=== PATIENT | female | born 1950 | race Caucasian/White ===

== ENCOUNTER 2017-10-31 15:11 | Inpatient (IN) | payer MEDICARE ==
[~2017-10-31] VITALS: Ht 160 cm; Wt 55.9 kg
[2017-10-31] MEDS ORDERED: morphine 4 MG/ML inj SYRINge IV ONE ×2 (15:35→17:50)
[2017-10-31] MEDS ORDERED: ondansetron/PF 4mg/2ml inj IV ONE (15:40)
[2017-10-31] MEDS ORDERED: normal saline 1000ML IV soln IV ONE ×2 (15:45→17:45)
[2017-10-31 15:59] LABS: BASOPHILS % (AUTO) 0.1 % (0-1); EOSINOPHILS % (AUTO) 0 % (0-6); HEMATOCRIT 39.9 % (35.0-45.0); HEMOGLOBIN 13.8 g/dl (12.0-16.0); LYMPHOCYTES # (AUTO) 0.6 X10'3 (1.1-4.8); LYMPHOCYTES % (AUTO) 2.7 % (21-51); MEAN CORPUSCULAR HEMOGLOBIN 31.8 PG (27.0-31.0); MEAN CORPUSCULAR HGB CONC 34.6 % (33.0-36.5); MEAN CORPUSCULAR VOLUME 91.8 FL (78-98); MEAN PLATELET VOLUME 8.1 FL (7.4-10.4); MONOCYTES # (AUTO) 0.2 X10'3 (0-0.9); NEUTROPHILS # (AUTO) 21.5 X10'3 (1.8-7.7); NEUTROPHILS % (AUTO) 96.2 % (42-75); PLATELET COUNT 296 X10'3 (140-440); RED BLOOD COUNT 4.34 X10'6 (4.20-5.60); RED CELL DISTRIBUTION WIDTH 13.5 % (11.5-14.5); WHITE BLOOD COUNT 22.3 X10'3 (4.5-11.0)
[2017-10-31] MEDS ORDERED: piperacillin/tazo 3.375gm/50ml 50 ML IV ONE (16:15)
[2017-10-31 16:24] LABS: ALANINE AMINOTRANSFERASE 28 U/L (12-78); ALBUMIN 3.4 G/DL (3.4-5.0); ALBUMIN/GLOBULIN RATIO 0.8 (1.1-1.5); ALKALINE PHOSPHATASE 90 IU/L (46-116); ANION GAP 14 (8-16); ASPARTATE AMINO TRANSFERASE 19 U/L (10-37); BILIRUBIN,TOTAL 1.4 MG/DL (0.1-1.0); BLOOD UREA NITROGEN 22 MG/DL (7-18); CALCIUM 9.7 MG/DL (8.5-10.1); CHLORIDE 99 MMOL/L (99-107); GLUCOSE 123 MG/DL (70-104); POTASSIUM 3.4 MMOL/L (3.5-5.1); SODIUM 139 MMOL/L (135-145); TOTAL CARBON DIOXIDE 25.8 MMOL/L (24-32); TOTAL PROTEIN 7.7 G/DL (6.4-8.2); eGFR 55 ML/MIN
[2017-10-31] MEDS ORDERED: vancomycin/NS 1 GM ADD-VANTAGE 250 ML IV ONE (17:45)
[2017-10-31] MEDS ORDERED: potassium Cl 40MEQ/NS 500ml 500 ML IV PRN ×2 (18:30)
[2017-10-31] MEDS ORDERED: ondansetron/PF 4mg/2ml inj IV PRN ×3 (18:30→21:35)
[2017-10-31] MEDS ORDERED: potassium Cl 20 mEq SR tablet PO PRN ×2 (18:30)
[2017-10-31] MEDS ORDERED: normal saline 1000ml 1,000 ML IV SCH (18:30)
[2017-10-31] MEDS ORDERED: morphine 4 MG/ML inj SYRINge IV PRN ×7 (18:30→21:35)
[2017-10-31] MEDS ORDERED: magnesium hydroxide 30ml (MOM) UD suspension PO PRN ×2 (18:30)
[2017-10-31] MEDS ORDERED: acetaminophen 325mg tablet PO PRN ×5 (18:30→20:00)
[2017-10-31] MEDS ORDERED: SIMV10TA2 PO (18:37)
[2017-10-31] MEDS ORDERED: MONT10TA24 PO (18:37)
[2017-10-31] MEDS ORDERED: BUDE10.2 INH (18:37)
[2017-10-31] MEDS ORDERED: ALBU8.5H8 INH (18:37)
[2017-10-31] MEDS ORDERED: ACET-812 PO (18:38)
[2017-10-31] MEDS ORDERED: CHL4T PO (18:39)
[2017-10-31] MEDS: normal saline 1000ml 1,000 ML IV SCH (19:57)
[2017-10-31] MEDS: docusate sod 100mg capsule PO SCH (20:00)
[2017-10-31] MEDS ORDERED: naloxone 0.4 mg/ml inj IV PRN (20:00)
[2017-10-31] MEDS: pantoprazole 40 MG vial IV SCH (20:00)
[2017-10-31] MEDS ORDERED: CADD PCA waste documentation MC PRN (20:00)
[2017-10-31] MEDS ORDERED: gentamicin 40 MG/1 ML inj ONE (20:01)
[2017-10-31] MEDS ORDERED: clindamycin phosphate 150mg/ml inj. ONE (20:01)
[2017-10-31] MEDS: piperacillin/tazo 3.375gm/50ml 50 ML IV SCH (20:05)
[2017-10-31] MEDS ORDERED: ipratropium/albuterol 3ml nebule NEB PRN (20:10)
[2017-10-31] MEDS ORDERED: fentaNYL /PF 50mcg/ml 5ml ampule ONE (20:21)
[2017-10-31] MEDS ORDERED: midazolam 2 mg/2 ml injection ONE (20:21)
[2017-10-31] MEDS ORDERED: albumin (Human) 5% 250 ML IV solution IV ONE (20:25)
[2017-10-31] MEDS ORDERED: desflurane 240ml liquid inh. IH ONE (20:25)
[2017-10-31] MEDS ORDERED: HYDROmorphone/NS 1 mg/ml CADD 50 ML IV SCH (21:00)
[2017-10-31] MEDS: ipratropium/albuterol 3ml nebule NEB SCH (21:00)
[2017-10-31] MEDS ORDERED: ringers solution, lacted 1,000 ML IV SCH (21:33)
[2017-10-31] MEDS ORDERED: meperidine/PF 50mg/ml syringe IV PRN ×3 (21:35)
[2017-10-31] MEDS ORDERED: proCHLORperazine 10 MG/2 ml inj IV PRN (21:35)
[2017-10-31] MEDS ORDERED: NORepinephrine 1 mg/ml inj IV ONE (21:45)
[2017-10-31] MEDS ORDERED: LIDOcaine 2% (20mg/ml) 5ml vial ONE (21:46)
[2017-10-31] MEDS ORDERED: propofol inj 20 ML IV ONE (21:46)
[2017-10-31] MEDS ORDERED: rocuronium 10mg/ml inj IV ONE ×2 (21:46)
[2017-10-31] MEDS ORDERED: ceFOXitin 1000 MG inj ONE ×2 (21:46)
[2017-10-31] MEDS ORDERED: NORepinephrine 8 MG in normal saline 250ml IV soln IV ONE (21:50)
[2017-10-31] MEDS ORDERED: midazolam 100mg in NS 100ml 100 ML IV PRN ×2 (22:17→22:25)
[2017-10-31] MEDS ORDERED: FENTANYL-0.9 % NACL/PF 100 ML IV PRN (22:17)
[2017-10-31] MEDS ORDERED: fentaNYL/PF 50MCG/1 ML 2ML syringe IV PRN (22:20)
[2017-10-31] MEDS ORDERED: midazolam 2 mg/2 ml injection IV ONE (22:20)
[2017-10-31] MEDS ORDERED: morphine 10mg/ml inj. ONE ×2 (23:07)
[2017-10-31] MEDS ORDERED: metoclopramide 5 mg/ml inj IV PRN (23:10)
[2017-10-31 23:14] VITALS: BP 142/85
[2017-10-31 23:29] VITALS: BP 154/81
[2017-10-31 23:44] VITALS: BP 144/76
[2017-10-31 23:53] LABS: BASOPHILS % (AUTO) 0.1 % (0-1); EOSINOPHILS % (AUTO) 0 % (0-6); HEMATOCRIT 35.5 % (35.0-45.0); LYMPHOCYTES # (AUTO) 1.4 X10'3 (1.1-4.8); LYMPHOCYTES % (AUTO) 9.7 % (21-51); MEAN CORPUSCULAR HEMOGLOBIN 31.3 PG (27.0-31.0); MEAN CORPUSCULAR HGB CONC 33.7 % (33.0-36.5); MEAN CORPUSCULAR VOLUME 92.7 FL (78-98); MEAN PLATELET VOLUME 8.1 FL (7.4-10.4); MONOCYTES # (AUTO) 0.4 X10'3 (0-0.9); MONOCYTES % (AUTO) 2.5 % (2-12); NEUTROPHILS # (AUTO) 12.8 X10'3 (1.8-7.7); NEUTROPHILS % (AUTO) 87.7 % (42-75); PLATELET COUNT 259 X10'3 (140-440); RED BLOOD COUNT 3.83 X10'6 (4.20-5.60); RED CELL DISTRIBUTION WIDTH 13.4 % (11.5-14.5); WHITE BLOOD COUNT 14.6 X10'3 (4.5-11.0)
[2017-10-31 23:56] LABS: OXYGEN SATURATION (MIXED VEN) 94.7 % (60-80); PO2 MIXED VENOUS (TEMP COR) 82.2 mmHg (35-46)
[2017-10-31 23:59] VITALS: BP 180/100
[2017-11-01] VITALS (24 sets, daily range): BP systolic 90–142; BP diastolic 48–77
[2017-11-01 00:18] LABS: ALANINE AMINOTRANSFERASE 22 U/L (12-78); ALBUMIN 2.3 G/DL (3.4-5.0); ALBUMIN/GLOBULIN RATIO 0.9 (1.1-1.5); ALKALINE PHOSPHATASE 63 IU/L (46-116); ANION GAP 11 (8-16); ASPARTATE AMINO TRANSFERASE 25 U/L (10-37); BILIRUBIN,TOTAL 0.9 MG/DL (0.1-1.0); BLOOD UREA NITROGEN 13 MG/DL (7-18); BUN/CREATININE RATIO 17.3 (6.6-38.0); CHLORIDE 111 MMOL/L (99-107); CREATININE 0.75 MG/DL (0.40-0.90); GLUCOSE 134 MG/DL (70-104); MAGNESIUM 1.5 MG/DL (1.5-2.4); PHOSPHORUS 2.5 MG/DL (2.3-4.5); SODIUM 142 MMOL/L (135-145); TOTAL CARBON DIOXIDE 20.1 MMOL/L (24-32); TOTAL PROTEIN 4.9 G/DL (6.4-8.2); eGFR 77 ML/MIN
[2017-11-01 00:19] LABS: POTASSIUM 3.7 MMOL/L (3.5-5.1)
[2017-11-01] MEDS: piperacillin/tazo 3.375gm/50ml 50 ML IV SCH ×4 (02:22→20:17)
[2017-11-01] MEDS: normal saline 1000ml 1,000 ML IV SCH ×2 (02:24→06:19)
[2017-11-01 02:32] LABS: BASOPHILS % (AUTO) 0.1 % (0-1); EOSINOPHILS % (AUTO) 0.3 % (0-6); HEMATOCRIT 34.2 % (35.0-45.0); HEMOGLOBIN 11.7 g/dl (12.0-16.0); LYMPHOCYTES # (AUTO) 0.9 X10'3 (1.1-4.8); LYMPHOCYTES % (AUTO) 6.2 % (21-51); MEAN CORPUSCULAR HEMOGLOBIN 31.8 PG (27.0-31.0); MEAN CORPUSCULAR HGB CONC 34.3 % (33.0-36.5); MEAN CORPUSCULAR VOLUME 92.6 FL (78-98); MEAN PLATELET VOLUME 8.1 FL (7.4-10.4); MONOCYTES # (AUTO) 0.2 X10'3 (0-0.9); MONOCYTES % (AUTO) 1.3 % (2-12); NEUTROPHILS % (AUTO) 92.1 % (42-75); PLATELET COUNT 268 X10'3 (140-440); RED BLOOD COUNT 3.69 X10'6 (4.20-5.60); RED CELL DISTRIBUTION WIDTH 13.6 % (11.5-14.5); WHITE BLOOD COUNT 14.1 X10'3 (4.5-11.0)
[2017-11-01 02:51] LABS: ALANINE AMINOTRANSFERASE 23 U/L (12-78); ALBUMIN 2.2 G/DL (3.4-5.0); ALBUMIN/GLOBULIN RATIO 0.8 (1.1-1.5); ALKALINE PHOSPHATASE 60 IU/L (46-116); ANION GAP 10 (8-16); ASPARTATE AMINO TRANSFERASE 23 U/L (10-37); BILIRUBIN,TOTAL 0.9 MG/DL (0.1-1.0); BLOOD UREA NITROGEN 14 MG/DL (7-18); CALCIUM 6.9 MG/DL (8.5-10.1); CHLORIDE 111 MMOL/L (99-107); GLUCOSE 126 MG/DL (70-104); MAGNESIUM 1.7 MG/DL (1.5-2.4); PHOSPHORUS 2.2 MG/DL (2.3-4.5); POTASSIUM 3.6 MMOL/L (3.5-5.1); SODIUM 141 MMOL/L (135-145); TOTAL CARBON DIOXIDE 20.4 MMOL/L (24-32); TROPONIN I 0.08 NG/ML (0.0-0.05); eGFR 83 ML/MIN
[2017-11-01] MEDS: ipratropium/albuterol 3ml nebule NEB SCH ×4 (03:36→20:46)
[2017-11-01 03:46] LABS: ABG BASE EXCESS -7.4 mmol/L (-2.0-3.0); ABG HCO3 17.8 mmol/L (22.0-26.0); ABG OXYGEN SATURATION 99.5 % (95-98); ABG PCO2 (T) 36.7 mmHg (32.0-45.0); ABG PH (T) 7.308 (7.350-7.450); ABG PO2 (T) 231.4 mmHg (83-108); FCOHb 0.3 % (0.5-1.5); FMetHb 0.4 % (0.3-1.12); FO2Hb 98.8 % (94-100); MINUTE VOLUME 7 L/min; PATIENT TEMPERATURE 37.9; PEEP 5 cm H2O; RESPIRATORY RATE 14 b/min; RESPIRATORY RATE (OBSERVED) 14 b/min; TIDAL VOLUME 450 mL; TOTAL HEMOGLOBIN 12.8 G/dl (12.0-16.0)
[2017-11-01 06:31] LABS: ABG BASE EXCESS -9.5 mmol/L (-2.0-3.0); ABG HCO3 15.8 mmol/L (22.0-26.0); ABG OXYGEN SATURATION 99.7 % (95-98); ABG PCO2 (T) 33.2 mmHg (32.0-45.0); ABG PH (T) 7.296 (7.350-7.450); FCOHb 0.3 % (0.5-1.5); FMetHb 0.4 % (0.3-1.12); MINUTE VOLUME 7 L/min; PATIENT TEMPERATURE 37.4; PEEP 5 cm H2O; RESPIRATORY RATE 14 b/min; RESPIRATORY RATE (OBSERVED) 14 b/min; TIDAL VOLUME 450 mL
[2017-11-01] MEDS: docusate sod 100mg capsule PO SCH ×2 (08:00→20:00)
[2017-11-01] MEDS: pantoprazole 40 MG vial IV SCH (09:21)
[2017-11-01] MEDS ORDERED: sodium phosphate inj. 30 MMOL in dextrose 5%-water 250 ML IV PRN (11:09)
[2017-11-01] MEDS ORDERED: magnesium 4gm in 100ml NS 100 ML IV PRN (11:10)
[2017-11-01] MEDS ORDERED: magnesium 2GM in 50ml NS 50 ML IV PRN (11:10)
[2017-11-01] MEDS: FENTANYL-0.9 % NACL/PF 100 ML IV PRN ×2 (11:36→22:49)
[2017-11-01] MEDS ORDERED: acetaminophen 650mg rectal suppository RC PRN (11:50)
[2017-11-01] MEDS: ringers solution, lacted 1,000 ML IV SCH ×2 (13:06→22:49)
[2017-11-01] MEDS: sodium phosphate inj. 15 MMOL in dextrose 5%-water 150 ML IV PRN (15:36)
[2017-11-01] MEDS ORDERED: amiodarone 150mg/dext, iso-os 100 ML IV STA (16:35)
[2017-11-01] MEDS: amiodarone/D5 450MG/250ML BAG 250 ML IV SCH (16:49)
[2017-11-01] MEDS: heparin, porcine 5000 units/ml vial SQ SCH (20:17)
[2017-11-02] VITALS (24 sets, daily range): BP systolic 94–147; BP diastolic 47–83
[2017-11-02] MEDS: amiodarone/D5 450MG/250ML BAG 250 ML IV SCH ×2 (00:11→14:27)
[2017-11-02] MEDS: ringers solution, lacted 1,000 ML IV SCH ×4 (00:30→19:30)
[2017-11-02] MEDS: mineral oil/petrolatum ophthal oint EACHEYE SCH ×4 (02:19→22:34)
[2017-11-02] MEDS: piperacillin/tazo 3.375gm/50ml 50 ML IV SCH ×4 (02:19→20:41)
[2017-11-02 02:32] LABS: ALANINE AMINOTRANSFERASE 17 U/L (12-78); ALBUMIN 1.7 G/DL (3.4-5.0); ALBUMIN/GLOBULIN RATIO 0.6 (1.1-1.5); ALKALINE PHOSPHATASE 57 IU/L (46-116); ANION GAP 8 (8-16); ASPARTATE AMINO TRANSFERASE 16 U/L (10-37); BILIRUBIN,TOTAL 0.7 MG/DL (0.1-1.0); BLOOD UREA NITROGEN 10 MG/DL (7-18); BUN/CREATININE RATIO 15.9 (6.6-38.0); CALCIUM 7.7 MG/DL (8.5-10.1); CHLORIDE 110 MMOL/L (99-107); CREATININE 0.63 MG/DL (0.40-0.90); GLUCOSE 127 MG/DL (70-104); MAGNESIUM 1.8 MG/DL (1.5-2.4); PHOSPHORUS 1.9 MG/DL (2.3-4.5); SODIUM 140 MMOL/L (135-145); TOTAL PROTEIN 4.7 G/DL (6.4-8.2); eGFR > 90 ML/MIN
[2017-11-02 02:38] LABS: POTASSIUM 2.8 MMOL/L (3.5-5.1)
[2017-11-02 02:56] LABS: BASOPHILS % (AUTO) 0.3 % (0-1); EOSINOPHILS # (AUTO) 0.1 X10'3 (0-0.9); EOSINOPHILS % (AUTO) 1.1 % (0-6); HEMATOCRIT 27.1 % (35.0-45.0); HEMOGLOBIN 9.2 g/dl (12.0-16.0); MEAN CORPUSCULAR HEMOGLOBIN 31.6 PG (27.0-31.0); MEAN CORPUSCULAR HGB CONC 33.9 % (33.0-36.5); MEAN CORPUSCULAR VOLUME 93.2 FL (78-98); MEAN PLATELET VOLUME 8.3 FL (7.4-10.4); MONOCYTES # (AUTO) 0.6 X10'3 (0-0.9); MONOCYTES % (AUTO) 5.5 % (2-12); NEUTROPHILS # (AUTO) 8.5 X10'3 (1.8-7.7); NEUTROPHILS % (AUTO) 83.1 % (42-75); PLATELET COUNT 221 X10'3 (140-440); WHITE BLOOD COUNT 10.2 X10'3 (4.5-11.0)
[2017-11-02] MEDS ORDERED: potassium Cl 40MEQ/250ML bag 250 ML IV PRN (03:15)
[2017-11-02] MEDS ORDERED: potassium Cl 40MEQ/250ML bag 250 ML IV ONE (03:20)
[2017-11-02] MEDS: ipratropium/albuterol 3ml nebule NEB SCH ×4 (03:22→20:57)
[2017-11-02 03:36] LABS: ABG BASE EXCESS -3.1 mmol/L (-2.0-3.0); ABG HCO3 20.9 mmol/L (22.0-26.0); ABG OXYGEN SATURATION 92.7 % (95-98); ABG PCO2 (T) 34.9 mmHg (32.0-45.0); ABG PH (T) 7.399 (7.350-7.450); ABG PO2 (T) 68.3 mmHg (83-108); ALLEN'S TEST Positive; FCOHb 0.3 % (0.5-1.5); FMetHb 0.1 % (0.3-1.12); FO2Hb 92.3 % (94-100); MINUTE VOLUME 7 L/min; PATIENT TEMPERATURE 38.1; PEEP 5 cm H2O; RESPIRATORY RATE 14 b/min; RESPIRATORY RATE (OBSERVED) 14 b/min; TIDAL VOLUME 450 mL; TOTAL HEMOGLOBIN 10.5 G/dl (12.0-16.0)
[2017-11-02] MEDS: docusate sod 100mg capsule PO SCH ×2 (08:00→20:00)
[2017-11-02] MEDS: pantoprazole 40 MG vial IV SCH (08:35)
[2017-11-02] MEDS: heparin, porcine 5000 units/ml vial SQ SCH ×2 (08:36→20:56)
[2017-11-02] MEDS: potassium Cl 40MEQ/250ML bag 250 ML IV PRN ×2 (08:37→21:44)
[2017-11-02] MEDS: furosemide 20 MG/2 ML vial IV SCH ×2 (09:11→20:00)
[2017-11-02] MEDS: sodium phosphate inj. 15 MMOL in dextrose 5%-water 150 ML IV PRN (11:53)
[2017-11-02] MEDS ORDERED: dexmedetomidin/NS 400mcg/100ml 100 ML IV SCH (15:20)
[2017-11-02] MEDS: lactobacillus rhamnosus 10,000 MMU CELLS/CAPSULE PO SCH (21:05)
[2017-11-02 21:16] LABS: MAGNESIUM 1.6 MG/DL (1.5-2.4); PHOSPHORUS 2.8 MG/DL (2.3-4.5)
[2017-11-02 21:17] LABS: POTASSIUM 2.9 MMOL/L (3.5-5.1)
[2017-11-03] VITALS (24 sets, daily range): BP systolic 98–140; BP diastolic 60–82
[2017-11-03] MEDS: potassium Cl 40MEQ/250ML bag 250 ML IV PRN (00:52)
[2017-11-03 02:40] LABS: ABG BASE EXCESS 0.1 mmol/L (-2.0-3.0); ABG HCO3 22.6 mmol/L (22.0-26.0); ABG OXYGEN SATURATION 97.3 % (95-98); ABG PCO2 (T) 28.8 mmHg (32.0-45.0); ABG PO2 (T) 87.6 mmHg (83-108); ALLEN'S TEST Positive; FCOHb 0.3 % (0.5-1.5); FMetHb 0.3 % (0.3-1.12); FO2Hb 96.7 % (94-100); MINUTE VOLUME 7 L/min; PATIENT TEMPERATURE 36.4; PEEP 5 cm H2O; RESPIRATORY RATE 12 b/min; RESPIRATORY RATE (OBSERVED) 18 b/min; TIDAL VOLUME 450 mL; TOTAL HEMOGLOBIN 10.3 G/dl (12.0-16.0)
[2017-11-03] MEDS: ipratropium/albuterol 3ml nebule NEB SCH ×4 (02:41→20:05)
[2017-11-03] MEDS: mineral oil/petrolatum ophthal oint EACHEYE SCH ×4 (03:57→20:00)
[2017-11-03] MEDS: piperacillin/tazo 3.375gm/50ml 50 ML IV SCH ×4 (03:57→20:33)
[2017-11-03 05:46] LABS: BASOPHILS # (AUTO) 0.2 X10'3 (0-0.2); BASOPHILS % (AUTO) 1.6 % (0-1); EOSINOPHILS # (AUTO) 0.4 X10'3 (0-0.9); EOSINOPHILS % (AUTO) 4.5 % (0-6); HEMOGLOBIN 9.3 g/dl (12.0-16.0); LYMPHOCYTES # (AUTO) 1.1 X10'3 (1.1-4.8); LYMPHOCYTES % (AUTO) 11.5 % (21-51); MEAN CORPUSCULAR HGB CONC 34.5 % (33.0-36.5); MEAN CORPUSCULAR VOLUME 92.6 FL (78-98); MEAN PLATELET VOLUME 8.2 FL (7.4-10.4); MONOCYTES # (AUTO) 0.6 X10'3 (0-0.9); MONOCYTES % (AUTO) 6.3 % (2-12); NEUTROPHILS # (AUTO) 7.3 X10'3 (1.8-7.7); NEUTROPHILS % (AUTO) 76.1 % (42-75); PLATELET COUNT 247 X10'3 (140-440); RED BLOOD COUNT 2.92 X10'6 (4.20-5.60); RED CELL DISTRIBUTION WIDTH 13.9 % (11.5-14.5); WHITE BLOOD COUNT 9.6 X10'3 (4.5-11.0)
[2017-11-03 06:24] LABS: ALANINE AMINOTRANSFERASE 27 U/L (12-78); ALBUMIN 1.9 G/DL (3.4-5.0); ALBUMIN/GLOBULIN RATIO 0.5 (1.1-1.5); ALKALINE PHOSPHATASE 80 IU/L (46-116); ANION GAP 8 (8-16); ASPARTATE AMINO TRANSFERASE 32 U/L (10-37); BILIRUBIN,TOTAL 0.9 MG/DL (0.1-1.0); BLOOD UREA NITROGEN 6 MG/DL (7-18); BUN/CREATININE RATIO 10.5 (6.6-38.0); CALCIUM 8.2 MG/DL (8.5-10.1); CHLORIDE 108 MMOL/L (99-107); CREATININE 0.57 MG/DL (0.40-0.90); GLUCOSE 123 MG/DL (70-104); MAGNESIUM 1.8 MG/DL (1.5-2.4); SODIUM 141 MMOL/L (135-145); TOTAL CARBON DIOXIDE 24.6 MMOL/L (24-32); TOTAL PROTEIN 5.4 G/DL (6.4-8.2); eGFR > 90 ML/MIN
[2017-11-03] MEDS: amiodarone/D5 450MG/250ML BAG 250 ML IV SCH (07:43)
[2017-11-03] MEDS: heparin, porcine 5000 units/ml vial SQ SCH ×2 (07:53→20:35)
[2017-11-03] MEDS: pantoprazole 40 MG vial IV SCH (07:53)
[2017-11-03] MEDS: lactobacillus rhamnosus 10,000 MMU CELLS/CAPSULE PO SCH ×2 (07:53→20:00)
[2017-11-03] MEDS: furosemide 20 MG/2 ML vial IV SCH ×2 (08:00→22:38)
[2017-11-03] MEDS: ringers solution, lacted 1,000 ML IV SCH ×2 (08:05→22:38)
[2017-11-03] MEDS: morphine 4 MG/ML inj SYRINge IV PRN ×5 (09:22→20:37)
[2017-11-03 16:23] LABS: PREALBUMIN 10.2 MG/DL (19-36)
[2017-11-03] MEDS ORDERED: fluconazole-Diflucan 200mg/NS 100 ML IV ONE (18:40)
[2017-11-03] MEDS: ondansetron/PF 4mg/2ml inj IV PRN (18:41)
[2017-11-03] MEDS: docusate sodium 100mg/10ml UD cup PO SCH (20:00)
[2017-11-03] MEDS: fat emulsion IV 100 ML, MVI, adult No.4 with vit. K 5 ML, Trace element-5 inj. 0.5 ML i... IV SCH ×4 (20:36)
[2017-11-03] MEDS ORDERED: Dextrose 10%-water IV solution 1,000 ML IV PRN (21:00)
[2017-11-03] MEDS: vancomycin/NS 1 GM ADD-VANTAGE 250 ML IV SCH (22:38)
[2017-11-04] VITALS (24 sets, daily range): BP systolic 101–148; BP diastolic 56–79
[2017-11-04] MEDS: morphine 4 MG/ML inj SYRINge IV PRN ×6 (00:29→22:27)
[2017-11-04] MEDS: amiodarone/D5 450MG/250ML BAG 250 ML IV SCH (00:30)
[2017-11-04] MEDS: mineral oil/petrolatum ophthal oint EACHEYE SCH ×2 (02:00→07:00)
[2017-11-04] MEDS: piperacillin/tazo 3.375gm/50ml 50 ML IV SCH ×4 (02:18→19:57)
[2017-11-04] MEDS: ipratropium/albuterol 3ml nebule NEB SCH ×4 (02:42→21:36)
[2017-11-04] MEDS: ondansetron/PF 4mg/2ml inj IV PRN ×2 (03:04→09:57)
[2017-11-04 03:45] LABS: BASOPHILS % (AUTO) 0.2 % (0-1); EOSINOPHILS # (AUTO) 0.4 X10'3 (0-0.9); EOSINOPHILS % (AUTO) 2.6 % (0-6); HEMOGLOBIN 9.7 g/dl (12.0-16.0); LYMPHOCYTES # (AUTO) 1.5 X10'3 (1.1-4.8); LYMPHOCYTES % (AUTO) 9.1 % (21-51); MEAN CORPUSCULAR HEMOGLOBIN 31.9 PG (27.0-31.0); MEAN CORPUSCULAR HGB CONC 34.8 % (33.0-36.5); MEAN CORPUSCULAR VOLUME 91.5 FL (78-98); MONOCYTES # (AUTO) 0.9 X10'3 (0-0.9); MONOCYTES % (AUTO) 5.6 % (2-12); NEUTROPHILS # (AUTO) 13.4 X10'3 (1.8-7.7); NEUTROPHILS % (AUTO) 82.5 % (42-75); PLATELET COUNT 312 X10'3 (140-440); RED BLOOD COUNT 3.06 X10'6 (4.20-5.60); RED CELL DISTRIBUTION WIDTH 13.9 % (11.5-14.5); WHITE BLOOD COUNT 16.2 X10'3 (4.5-11.0)
[2017-11-04 04:01] LABS: ALANINE AMINOTRANSFERASE 35 U/L (12-78); ALBUMIN 2.1 G/DL (3.4-5.0); ALBUMIN/GLOBULIN RATIO 0.6 (1.1-1.5); ALKALINE PHOSPHATASE 123 IU/L (46-116); ANION GAP 7 (8-16); ASPARTATE AMINO TRANSFERASE 47 U/L (10-37); BILIRUBIN,TOTAL 1.1 MG/DL (0.1-1.0); BLOOD UREA NITROGEN 5 MG/DL (7-18); BUN/CREATININE RATIO 7.8 (6.6-38.0); CALCIUM 8.1 MG/DL (8.5-10.1); CHLORIDE 100 MMOL/L (99-107); CREATININE 0.64 MG/DL (0.40-0.90); GLUCOSE 136 MG/DL (70-104); MAGNESIUM 1.6 MG/DL (1.5-2.4); PHOSPHORUS 2.5 MG/DL (2.3-4.5); POTASSIUM 3.1 MMOL/L (3.5-5.1); SODIUM 137 MMOL/L (135-145); TOTAL CARBON DIOXIDE 29.6 MMOL/L (24-32); TOTAL PROTEIN 5.7 G/DL (6.4-8.2); eGFR > 90 ML/MIN
[2017-11-04 04:21] LABS: BANDS% (MANUAL) 2 % (0-10); EOSINOPHILS % (MANUAL) 2 % (0-6); LYMPHOCYTES % (MANUAL) 10 % (21-51); MONOCYTES % (MANUAL) 6 % (2-12); NEUTROPHILS % (MANUAL) 80 % (42-75); TOTAL CELLS COUNTED 100
[2017-11-04 04:22] LABS: LARGE PLATELETS FEW; PLATELET ESTIMATE NORMAL; TOXIC GRANULATION 1+; TOXIC VACUOLATION FEW
[2017-11-04] MEDS: potassium Cl 40MEQ/250ML bag 250 ML IV PRN (04:32)
[2017-11-04] MEDS: docusate sodium 100mg/10ml UD cup PO SCH ×2 (07:32→19:57)
[2017-11-04] MEDS: vancomycin/NS 1 GM ADD-VANTAGE 250 ML IV SCH (07:32)
[2017-11-04] MEDS: fluconazole-Diflucan 200mg/NS 100 ML IV SCH (07:32)
[2017-11-04] MEDS: pantoprazole 40 MG vial IV SCH (07:33)
[2017-11-04] MEDS: furosemide 20 MG/2 ML vial IV SCH (07:33)
[2017-11-04] MEDS: methylnaltrexone br 12mg/0.6ml inj***SubQ only SQ SCH (07:33)
[2017-11-04] MEDS: lactobacillus rhamnosus 10,000 MMU CELLS/CAPSULE PO SCH ×2 (07:34→19:58)
[2017-11-04] MEDS: heparin, porcine 5000 units/ml vial SQ SCH ×2 (07:34→19:58)
[2017-11-04] MEDS ORDERED: methylnaltrexone br 12mg/0.6ml inj***SubQ only SQ SCH (08:00)
[2017-11-04] MEDS ORDERED: morphine/NS 100mg/100ml bag 100 ML IV SCH (10:50)
[2017-11-04] MEDS: normal saline 1000ml 1,000 ML IV SCH (12:20)
[2017-11-04] MEDS: acetaminophen 325mg tablet PO PRN (13:21)
[2017-11-04] MEDS: fat emulsion IV 100 ML, MVI, adult No.4 with vit. K 5 ML, Trace element-5 inj. 0.5 ML i... IV SCH ×4 (18:26)
[2017-11-05] VITALS (20 sets, daily range): BP systolic 114–144; BP diastolic 61–83
[2017-11-05] MEDS: piperacillin/tazo 3.375gm/50ml 50 ML IV SCH ×4 (02:39→19:59)
[2017-11-05] MEDS: ipratropium/albuterol 3ml nebule NEB SCH ×4 (03:00→19:49)
[2017-11-05 03:12] LABS: BASOPHILS % (AUTO) 0.1 % (0-1); EOSINOPHILS # (AUTO) 0.2 X10'3 (0-0.9); EOSINOPHILS % (AUTO) 1.6 % (0-6); HEMATOCRIT 28.3 % (35.0-45.0); HEMOGLOBIN 9.6 g/dl (12.0-16.0); LYMPHOCYTES # (AUTO) 1.3 X10'3 (1.1-4.8); LYMPHOCYTES % (AUTO) 8.8 % (21-51); MEAN CORPUSCULAR HEMOGLOBIN 31.3 PG (27.0-31.0); MEAN CORPUSCULAR HGB CONC 33.8 % (33.0-36.5); MEAN CORPUSCULAR VOLUME 92.6 FL (78-98); MONOCYTES # (AUTO) 1.3 X10'3 (0-0.9); MONOCYTES % (AUTO) 8.3 % (2-12); NEUTROPHILS # (AUTO) 12.3 X10'3 (1.8-7.7); NEUTROPHILS % (AUTO) 81.2 % (42-75); PLATELET COUNT 346 X10'3 (140-440); RED BLOOD COUNT 3.05 X10'6 (4.20-5.60); RED CELL DISTRIBUTION WIDTH 14.4 % (11.5-14.5); WHITE BLOOD COUNT 15.2 X10'3 (4.5-11.0)
[2017-11-05] MEDS: morphine 4 MG/ML inj SYRINge IV PRN ×4 (03:24→19:59)
[2017-11-05 03:31] LABS: ALANINE AMINOTRANSFERASE 36 U/L (12-78); ALBUMIN/GLOBULIN RATIO 0.5 (1.1-1.5); ALKALINE PHOSPHATASE 109 IU/L (46-116); ANION GAP 7 (8-16); ASPARTATE AMINO TRANSFERASE 31 U/L (10-37); BILIRUBIN,TOTAL 0.6 MG/DL (0.1-1.0); BLOOD UREA NITROGEN 14 MG/DL (7-18); BUN/CREATININE RATIO 23.3 (6.6-38.0); CALCIUM 8.3 MG/DL (8.5-10.1); CHLORIDE 99 MMOL/L (99-107); GLUCOSE 152 MG/DL (70-104); MAGNESIUM 2.1 MG/DL (1.5-2.4); PHOSPHORUS 2.5 MG/DL (2.3-4.5); POTASSIUM 3.1 MMOL/L (3.5-5.1); SODIUM 137 MMOL/L (135-145); TOTAL PROTEIN 5.8 G/DL (6.4-8.2); eGFR > 90 ML/MIN
[2017-11-05] MEDS ORDERED: potassium Cl 40MEQ/250ML bag 250 ML IV ONE (03:59)
[2017-11-05] MEDS: ondansetron/PF 4mg/2ml inj IV PRN ×2 (06:44→23:26)
[2017-11-05] MEDS: pantoprazole 40 MG vial IV SCH (08:08)
[2017-11-05] MEDS: lactobacillus rhamnosus 10,000 MMU CELLS/CAPSULE PO SCH ×2 (08:08→20:23)
[2017-11-05] MEDS: heparin, porcine 5000 units/ml vial SQ SCH ×2 (08:08→20:00)
[2017-11-05] MEDS: docusate sodium 100mg/10ml UD cup PO SCH ×2 (08:08→19:59)
[2017-11-05] MEDS: fluconazole-Diflucan 200mg/NS 100 ML IV SCH (08:09)
[2017-11-05] MEDS: acetaminophen 325mg tablet PO PRN (13:49)
[2017-11-05] MEDS: fat emulsion IV 100 ML, MVI, adult No.4 with vit. K 5 ML, Trace element-5 inj. 0.5 ML i... IV SCH ×8 (13:55→17:53)
[2017-11-06] MEDS: morphine 4 MG/ML inj SYRINge IV PRN (00:56)
[2017-11-06] MEDS: piperacillin/tazo 3.375gm/50ml 50 ML IV SCH ×4 (01:30→21:35)
[2017-11-06] MEDS: ipratropium/albuterol 3ml nebule NEB SCH ×4 (03:06→20:21)
[2017-11-06 03:38] LABS: BASOPHILS # (AUTO) 0.1 X10'3 (0-0.2); BASOPHILS % (AUTO) 0.7 % (0-1); EOSINOPHILS # (AUTO) 0.5 X10'3 (0-0.9); EOSINOPHILS % (AUTO) 3.1 % (0-6); HEMATOCRIT 29.6 % (35.0-45.0); HEMOGLOBIN 9.9 g/dl (12.0-16.0); LYMPHOCYTES % (AUTO) 6.8 % (21-51); MEAN CORPUSCULAR HEMOGLOBIN 31.3 PG (27.0-31.0); MEAN CORPUSCULAR HGB CONC 33.4 % (33.0-36.5); MEAN CORPUSCULAR VOLUME 93.5 FL (78-98); MONOCYTES # (AUTO) 1.2 X10'3 (0-0.9); MONOCYTES % (AUTO) 8.2 % (2-12); NEUTROPHILS # (AUTO) 11.8 X10'3 (1.8-7.7); NEUTROPHILS % (AUTO) 81.2 % (42-75); PLATELET COUNT 409 X10'3 (140-440); RED BLOOD COUNT 3.17 X10'6 (4.20-5.60); RED CELL DISTRIBUTION WIDTH 14.2 % (11.5-14.5); WHITE BLOOD COUNT 14.5 X10'3 (4.5-11.0)
[2017-11-06 04:10] LABS: ALANINE AMINOTRANSFERASE 33 U/L (12-78); ALBUMIN/GLOBULIN RATIO 0.5 (1.1-1.5); ALKALINE PHOSPHATASE 120 IU/L (46-116); ANION GAP 9 (8-16); ASPARTATE AMINO TRANSFERASE 25 U/L (10-37); BILIRUBIN,TOTAL 0.5 MG/DL (0.1-1.0); BLOOD UREA NITROGEN 13 MG/DL (7-18); BUN/CREATININE RATIO 21.3 (6.6-38.0); CALCIUM 8.6 MG/DL (8.5-10.1); CHLORIDE 102 MMOL/L (99-107); CREATININE 0.61 MG/DL (0.40-0.90); GLUCOSE 175 MG/DL (70-104); MAGNESIUM 2.2 MG/DL (1.5-2.4); PHOSPHORUS 2.7 MG/DL (2.3-4.5); POTASSIUM 3.7 MMOL/L (3.5-5.1); SODIUM 138 MMOL/L (135-145); TOTAL CARBON DIOXIDE 27.5 MMOL/L (24-32); TOTAL PROTEIN 6.1 G/DL (6.4-8.2); eGFR > 90 ML/MIN
[2017-11-06] MEDS: fat emulsion IV 100 ML, MVI, adult No.4 with vit. K 5 ML, Trace element-5 inj. 0.5 ML i... IV SCH ×8 (05:18→16:36)
[2017-11-06 07:00] VITALS: BP 147/75
[2017-11-06] MEDS: docusate sodium 100mg/10ml UD cup PO SCH ×2 (07:20→20:00)
[2017-11-06] MEDS: lactobacillus rhamnosus 10,000 MMU CELLS/CAPSULE PO SCH ×2 (07:20→20:00)
[2017-11-06] MEDS: ondansetron/PF 4mg/2ml inj IV PRN ×2 (07:28→21:24)
[2017-11-06] MEDS: heparin, porcine 5000 units/ml vial SQ SCH ×2 (07:35→21:47)
[2017-11-06] MEDS: methylnaltrexone br 12mg/0.6ml inj***SubQ only SQ SCH (07:35)
[2017-11-06] MEDS: fluconazole-Diflucan 200mg/NS 100 ML IV SCH (10:59)
[2017-11-06 11:00] VITALS: BP 153/83
[2017-11-06] MEDS: normal saline 1000ml 1,000 ML IV SCH (16:48)
[2017-11-06] MEDS ORDERED: metoclopramide 5 mg/ml inj IV PRN (18:20)
[2017-11-06 19:00] VITALS: BP 149/77
[2017-11-06] MEDS ORDERED: dextrose 50%-water 50ml dispensing syringe IV PRN (22:10)
[2017-11-06] MEDS ORDERED: glucagon, human recombinant 1mg kit SUBCUT PRN (22:10)
[2017-11-06] MEDS ORDERED: insulin regular, human vial - multi-dose SQ SCH (22:10)
[2017-11-06] MEDS ORDERED: insulin regular, human vial - multi-dose ONE (22:58)
[2017-11-06] MEDS ORDERED: insulin glargine (Lantus) pen - multi-dose SQ ONE (22:59)
[2017-11-06] MEDS: insulin glargine (Lantus) pen - multi-dose SQ SCH (23:31)
[2017-11-07] MEDS: piperacillin/tazo 3.375gm/50ml 50 ML IV SCH ×4 (02:42→20:20)
[2017-11-07] MEDS: fat emulsion IV 100 ML, MVI, adult No.4 with vit. K 5 ML, Trace element-5 inj. 0.5 ML i... IV SCH ×8 (02:43→15:30)
[2017-11-07] MEDS: ipratropium/albuterol 3ml nebule NEB SCH ×4 (04:21→20:12)
[2017-11-07 05:00] VITALS: BP 135/73
[2017-11-07 05:27] LABS: BASOPHILS # (AUTO) 0.1 X10'3 (0-0.2); BASOPHILS % (AUTO) 0.7 % (0-1); EOSINOPHILS # (AUTO) 0.5 X10'3 (0-0.9); EOSINOPHILS % (AUTO) 3.1 % (0-6); HEMATOCRIT 31.3 % (35.0-45.0); LYMPHOCYTES # (AUTO) 1.6 X10'3 (1.1-4.8); LYMPHOCYTES % (AUTO) 10.3 % (21-51); MEAN CORPUSCULAR VOLUME 91.2 FL (78-98); MEAN PLATELET VOLUME 7.9 FL (7.4-10.4); MONOCYTES # (AUTO) 1.6 X10'3 (0-0.9); NEUTROPHILS # (AUTO) 11.9 X10'3 (1.8-7.7); NEUTROPHILS % (AUTO) 75.9 % (42-75); PLATELET COUNT 575 X10'3 (140-440); RED BLOOD COUNT 3.43 X10'6 (4.20-5.60); RED CELL DISTRIBUTION WIDTH 14.2 % (11.5-14.5); WHITE BLOOD COUNT 15.7 X10'3 (4.5-11.0)
[2017-11-07 05:49] LABS: ALANINE AMINOTRANSFERASE 38 U/L (12-78); ALBUMIN 2.2 G/DL (3.4-5.0); ALBUMIN/GLOBULIN RATIO 0.5 (1.1-1.5); ALKALINE PHOSPHATASE 148 IU/L (46-116); ANION GAP 8 (8-16); ASPARTATE AMINO TRANSFERASE 25 U/L (10-37); BILIRUBIN,TOTAL 0.5 MG/DL (0.1-1.0); BLOOD UREA NITROGEN 13 MG/DL (7-18); BUN/CREATININE RATIO 24.5 (6.6-38.0); CALCIUM 8.6 MG/DL (8.5-10.1); CHLORIDE 100 MMOL/L (99-107); CREATININE 0.53 MG/DL (0.40-0.90); GLUCOSE 114 MG/DL (70-104); MAGNESIUM 2.3 MG/DL (1.5-2.4); PHOSPHORUS 2.9 MG/DL (2.3-4.5); POTASSIUM 3.7 MMOL/L (3.5-5.1); PREALBUMIN 15.3 MG/DL (19-36); SODIUM 135 MMOL/L (135-145); TOTAL CARBON DIOXIDE 26.9 MMOL/L (24-32); TOTAL PROTEIN 6.5 G/DL (6.4-8.2); TRIGLYCERIDES 252 MG/DL (20-135); eGFR > 90 ML/MIN
[2017-11-07] MEDS: lactobacillus rhamnosus 10,000 MMU CELLS/CAPSULE PO SCH ×2 (07:07→20:00)
[2017-11-07] MEDS: docusate sodium 100mg/10ml UD cup PO SCH ×2 (07:07→20:00)
[2017-11-07 08:54] LABS: UREA NITROGEN 24HR,URINE 13.7 GM/24HR (7-20)
[2017-11-07] MEDS: fluconazole-Diflucan 200mg/NS 100 ML IV SCH (09:17)
[2017-11-07] MEDS: heparin, porcine 5000 units/ml vial SQ SCH ×2 (09:20→20:19)
[2017-11-07 10:12] VITALS: BP 147/72
[2017-11-07 12:00] VITALS: BP 146/83
[2017-11-07 19:30] VITALS: BP 150/88
[2017-11-07] MEDS: insulin glargine (Lantus) pen - multi-dose SQ SCH (20:44)
[2017-11-07] MEDS ORDERED: insulin glargine (Lantus) pen - multi-dose SQ SCH (21:00)
[2017-11-08] VITALS: BP 137/94
[2017-11-08] MEDS: piperacillin/tazo 3.375gm/50ml 50 ML IV SCH ×4 (02:36→19:23)
[2017-11-08] MEDS: fat emulsion IV 100 ML, MVI, adult No.4 with vit. K 5 ML, Trace element-5 inj. 0.5 ML i... IV SCH ×8 (02:37→14:11)
[2017-11-08] MEDS: ipratropium/albuterol 3ml nebule NEB SCH ×4 (03:23→20:48)
[2017-11-08 05:47] LABS: BASOPHILS # (AUTO) 0.2 X10'3 (0-0.2); BASOPHILS % (AUTO) 1.1 % (0-1); EOSINOPHILS # (AUTO) 0.6 X10'3 (0-0.9); EOSINOPHILS % (AUTO) 3.5 % (0-6); HEMATOCRIT 32.5 % (35.0-45.0); HEMOGLOBIN 11.3 g/dl (12.0-16.0); LYMPHOCYTES # (AUTO) 1.5 X10'3 (1.1-4.8); LYMPHOCYTES % (AUTO) 9.1 % (21-51); MEAN CORPUSCULAR HEMOGLOBIN 31.8 PG (27.0-31.0); MEAN CORPUSCULAR HGB CONC 34.8 % (33.0-36.5); MEAN CORPUSCULAR VOLUME 91.4 FL (78-98); MEAN PLATELET VOLUME 7.7 FL (7.4-10.4); MONOCYTES # (AUTO) 1.8 X10'3 (0-0.9); MONOCYTES % (AUTO) 10.5 % (2-12); NEUTROPHILS # (AUTO) 12.7 X10'3 (1.8-7.7); NEUTROPHILS % (AUTO) 75.8 % (42-75); PLATELET COUNT 627 X10'3 (140-440); RED BLOOD COUNT 3.55 X10'6 (4.20-5.60); RED CELL DISTRIBUTION WIDTH 14.2 % (11.5-14.5); WHITE BLOOD COUNT 16.7 X10'3 (4.5-11.0)
[2017-11-08 06:05] LABS: ALANINE AMINOTRANSFERASE 48 U/L (12-78); ALBUMIN 2.4 G/DL (3.4-5.0); ALBUMIN/GLOBULIN RATIO 0.6 (1.1-1.5); ALKALINE PHOSPHATASE 183 IU/L (46-116); ANION GAP 10 (8-16); ASPARTATE AMINO TRANSFERASE 33 U/L (10-37); BILIRUBIN,TOTAL 0.5 MG/DL (0.1-1.0); BLOOD UREA NITROGEN 14 MG/DL (7-18); BUN/CREATININE RATIO 23.3 (6.6-38.0); CALCIUM 8.7 MG/DL (8.5-10.1); CHLORIDE 99 MMOL/L (99-107); GLUCOSE 169 MG/DL (70-104); MAGNESIUM 2.3 MG/DL (1.5-2.4); PHOSPHORUS 3.3 MG/DL (2.3-4.5); SODIUM 134 MMOL/L (135-145); TOTAL CARBON DIOXIDE 24.9 MMOL/L (24-32); TOTAL PROTEIN 6.7 G/DL (6.4-8.2); eGFR > 90 ML/MIN
[2017-11-08 07:00] VITALS: BP 149/88
[2017-11-08] MEDS: docusate sodium 100mg/10ml UD cup PO SCH ×2 (07:56→19:24)
[2017-11-08] MEDS: lactobacillus rhamnosus 10,000 MMU CELLS/CAPSULE PO SCH ×2 (07:56→19:24)
[2017-11-08] MEDS: methylnaltrexone br 12mg/0.6ml inj***SubQ only SQ SCH (07:59)
[2017-11-08] MEDS: heparin, porcine 5000 units/ml vial SQ SCH ×2 (08:01→19:24)
[2017-11-08 08:34] LABS: BANDS% (MANUAL) 1 % (0-10); BASOPHILS % (MANUAL) 1 % (0-1); EOSINOPHILS % (MANUAL) 1 % (0-6); LYMPHOCYTES % (MANUAL) 7 % (21-51); METAMYLEOCYTES% (MANUAL) 1 % (0-0); MONOCYTES % (MANUAL) 13 % (2-12); NEUTROPHILS % (MANUAL) 76 % (42-75); PLATELET ESTIMATE INCREASED; TOTAL CELLS COUNTED 100
[2017-11-08 08:35] LABS: LARGE PLATELETS FEW; POLYCHROMASIA 1+
[2017-11-08] MEDS: fluconazole-Diflucan 200mg/NS 100 ML IV SCH (09:08)
[2017-11-08 11:56] VITALS: BP 151/79
[2017-11-08] MEDS: normal saline 1000ml 1,000 ML IV SCH (12:36)
[2017-11-08] MEDS ORDERED: MORPHINE 2MG in 2ml NS syringe IV PRN (19:17)
[2017-11-08 20:00] VITALS: BP 133/80
[2017-11-08] MEDS: insulin glargine (Lantus) pen - multi-dose SQ SCH (21:00)
[2017-11-09] VITALS: BP 133/76
[2017-11-09] MEDS: piperacillin/tazo 3.375gm/50ml 50 ML IV SCH ×4 (01:25→19:57)
[2017-11-09] MEDS: fat emulsion IV 100 ML, MVI, adult No.4 with vit. K 5 ML, Trace element-5 inj. 0.5 ML i... IV SCH ×8 (01:26→18:38)
[2017-11-09] MEDS: ipratropium/albuterol 3ml nebule NEB SCH ×4 (02:39→20:39)
[2017-11-09 05:36] LABS: BASOPHILS % (AUTO) 0.1 % (0-1); EOSINOPHILS # (AUTO) 0.5 X10'3 (0-0.9); EOSINOPHILS % (AUTO) 3.2 % (0-6); HEMATOCRIT 31.9 % (35.0-45.0); LYMPHOCYTES # (AUTO) 1.6 X10'3 (1.1-4.8); LYMPHOCYTES % (AUTO) 10.4 % (21-51); MEAN CORPUSCULAR HEMOGLOBIN 31.9 PG (27.0-31.0); MEAN CORPUSCULAR HGB CONC 34.6 % (33.0-36.5); MEAN CORPUSCULAR VOLUME 92.2 FL (78-98); MEAN PLATELET VOLUME 7.7 FL (7.4-10.4); MONOCYTES # (AUTO) 1.5 X10'3 (0-0.9); MONOCYTES % (AUTO) 9.6 % (2-12); NEUTROPHILS # (AUTO) 12.1 X10'3 (1.8-7.7); NEUTROPHILS % (AUTO) 76.7 % (42-75); PLATELET COUNT 633 X10'3 (140-440); RED BLOOD COUNT 3.46 X10'6 (4.20-5.60); RED CELL DISTRIBUTION WIDTH 14.7 % (11.5-14.5); WHITE BLOOD COUNT 15.8 X10'3 (4.5-11.0)
[2017-11-09 06:10] LABS: ALANINE AMINOTRANSFERASE 55 U/L (12-78); ALBUMIN 2.4 G/DL (3.4-5.0); ALBUMIN/GLOBULIN RATIO 0.6 (1.1-1.5); ALKALINE PHOSPHATASE 186 IU/L (46-116); ANION GAP 12 (8-16); ASPARTATE AMINO TRANSFERASE 28 U/L (10-37); BILIRUBIN,TOTAL 0.5 MG/DL (0.1-1.0); BLOOD UREA NITROGEN 19 MG/DL (7-18); CALCIUM 8.4 MG/DL (8.5-10.1); CHLORIDE 100 MMOL/L (99-107); CREATININE 0.73 MG/DL (0.40-0.90); GLUCOSE 152 MG/DL (70-104); MAGNESIUM 2.3 MG/DL (1.5-2.4); PHOSPHORUS 3.7 MG/DL (2.3-4.5); SODIUM 135 MMOL/L (135-145); TOTAL CARBON DIOXIDE 23.5 MMOL/L (24-32); TOTAL PROTEIN 6.4 G/DL (6.4-8.2); eGFR 80 ML/MIN
[2017-11-09 07:34] VITALS: BP 107/69
[2017-11-09] MEDS: docusate sodium 100mg/10ml UD cup PO SCH ×2 (07:58→19:56)
[2017-11-09] MEDS: lactobacillus rhamnosus 10,000 MMU CELLS/CAPSULE PO SCH ×2 (07:59→19:56)
[2017-11-09] MEDS: heparin, porcine 5000 units/ml vial SQ SCH ×2 (07:59→19:57)
[2017-11-09] MEDS: fluconazole-Diflucan 200mg/NS 100 ML IV SCH (09:07)
[2017-11-09 11:02] VITALS: BP 127/73
[2017-11-09 19:00] VITALS: BP 121/68
[2017-11-09] MEDS: insulin glargine (Lantus) pen - multi-dose SQ SCH (21:00)
[2017-11-09 23:58] VITALS: BP 110/60
[2017-11-10] MEDS: piperacillin/tazo 3.375gm/50ml 50 ML IV SCH ×4 (01:44→21:12)
[2017-11-10] MEDS: ipratropium/albuterol 3ml nebule NEB SCH ×4 (02:29→20:11)
[2017-11-10 06:06] LABS: BASOPHILS # (AUTO) 0.1 X10'3 (0-0.2); BASOPHILS % (AUTO) 0.4 % (0-1); EOSINOPHILS # (AUTO) 0.8 X10'3 (0-0.9); EOSINOPHILS % (AUTO) 4.7 % (0-6); HEMATOCRIT 31.7 % (35.0-45.0); HEMOGLOBIN 10.9 g/dl (12.0-16.0); LYMPHOCYTES # (AUTO) 1.7 X10'3 (1.1-4.8); LYMPHOCYTES % (AUTO) 10.4 % (21-51); MEAN CORPUSCULAR HGB CONC 34.6 % (33.0-36.5); MEAN CORPUSCULAR VOLUME 92.5 FL (78-98); MEAN PLATELET VOLUME 7.9 FL (7.4-10.4); MONOCYTES # (AUTO) 1.5 X10'3 (0-0.9); MONOCYTES % (AUTO) 9.5 % (2-12); NEUTROPHILS # (AUTO) 12.2 X10'3 (1.8-7.7); PLATELET COUNT 667 X10'3 (140-440); RED BLOOD COUNT 3.43 X10'6 (4.20-5.60); RED CELL DISTRIBUTION WIDTH 14.5 % (11.5-14.5); WHITE BLOOD COUNT 16.3 X10'3 (4.5-11.0)
[2017-11-10 06:36] LABS: ALANINE AMINOTRANSFERASE 47 U/L (12-78); ALBUMIN 2.6 G/DL (3.4-5.0); ALBUMIN/GLOBULIN RATIO 0.7 (1.1-1.5); ALKALINE PHOSPHATASE 165 IU/L (46-116); ANION GAP 12 (8-16); ASPARTATE AMINO TRANSFERASE 20 U/L (10-37); BILIRUBIN,TOTAL 0.5 MG/DL (0.1-1.0); BLOOD UREA NITROGEN 15 MG/DL (7-18); BUN/CREATININE RATIO 20.3 (6.6-38.0); CHLORIDE 101 MMOL/L (99-107); CREATININE 0.74 MG/DL (0.40-0.90); GLUCOSE 113 MG/DL (70-104); MAGNESIUM 2.1 MG/DL (1.5-2.4); PHOSPHORUS 3.9 MG/DL (2.3-4.5); POTASSIUM 4.4 MMOL/L (3.5-5.1); SODIUM 135 MMOL/L (135-145); TOTAL CARBON DIOXIDE 21.8 MMOL/L (24-32); TOTAL PROTEIN 6.5 G/DL (6.4-8.2); TRIGLYCERIDES 175 MG/DL (20-135); eGFR 78 ML/MIN
[2017-11-10 07:50] VITALS: BP 132/69
[2017-11-10] MEDS: heparin, porcine 5000 units/ml vial SQ SCH ×2 (08:03→21:12)
[2017-11-10] MEDS: lactobacillus rhamnosus 10,000 MMU CELLS/CAPSULE PO SCH ×2 (08:03→21:11)
[2017-11-10] MEDS: docusate sodium 100mg/10ml UD cup PO SCH ×2 (08:03→21:11)
[2017-11-10] MEDS: methylnaltrexone br 12mg/0.6ml inj***SubQ only SQ SCH (08:04)
[2017-11-10] MEDS: fat emulsion IV 100 ML, MVI, adult No.4 with vit. K 5 ML, Trace element-5 inj. 0.5 ML i... IV SCH ×4 (08:15)
[2017-11-10] MEDS: fluconazole-Diflucan 200mg/NS 100 ML IV SCH (08:21)
[2017-11-10 10:25] LABS: GIANT PLATELET FEW; HYPOGRANULAR PLATELETS FEW; LARGE PLATELETS FEW; PLATELET ESTIMATE INCREASED; TOTAL CELLS COUNTED 100
[2017-11-10] MEDS: normal saline 1000ml 1,000 ML IV SCH (11:35)
[2017-11-10 11:45] VITALS: BP 146/77
[2017-11-10] MEDS ORDERED: fat emulsion IV 100 ML, MVI, adult No.4 with vit. K 10 ML, Trace element-5 inj. 1 ML in... IV SCH ×4 (18:00)
[2017-11-10 18:30] VITALS: BP 152/87
[2017-11-10] MEDS ORDERED: MORPHINE 2MG in 2ml NS syringe IV PRN (19:25)
[2017-11-10] MEDS ORDERED: morphine 4 MG/ML inj SYRINge IV PRN ×2 (19:28)
[2017-11-10] MEDS: insulin glargine (Lantus) pen - multi-dose SQ SCH (21:00)
[2017-11-11] VITALS: BP 136/81
[2017-11-11] MEDS: piperacillin/tazo 3.375gm/50ml 50 ML IV SCH ×4 (02:29→19:59)
[2017-11-11] MEDS: ipratropium/albuterol 3ml nebule NEB SCH ×4 (02:47→20:26)
[2017-11-11 06:29] LABS: BASOPHILS # (AUTO) 0.1 X10'3 (0-0.2); BASOPHILS % (AUTO) 0.6 % (0-1); EOSINOPHILS # (AUTO) 0.6 X10'3 (0-0.9); EOSINOPHILS % (AUTO) 4.6 % (0-6); HEMATOCRIT 32.5 % (35.0-45.0); HEMOGLOBIN 11.2 g/dl (12.0-16.0); LYMPHOCYTES # (AUTO) 1.6 X10'3 (1.1-4.8); LYMPHOCYTES % (AUTO) 13.4 % (21-51); MEAN CORPUSCULAR HEMOGLOBIN 31.7 PG (27.0-31.0); MEAN CORPUSCULAR HGB CONC 34.5 % (33.0-36.5); MEAN CORPUSCULAR VOLUME 91.9 FL (78-98); MEAN PLATELET VOLUME 7.8 FL (7.4-10.4); MONOCYTES % (AUTO) 8.5 % (2-12); NEUTROPHILS # (AUTO) 8.7 X10'3 (1.8-7.7); NEUTROPHILS % (AUTO) 72.9 % (42-75); PLATELET COUNT 634 X10'3 (140-440); RED BLOOD COUNT 3.54 X10'6 (4.20-5.60); RED CELL DISTRIBUTION WIDTH 14.6 % (11.5-14.5); WHITE BLOOD COUNT 11.9 X10'3 (4.5-11.0)
[2017-11-11 06:55] LABS: ALANINE AMINOTRANSFERASE 42 U/L (12-78); ALBUMIN 2.7 G/DL (3.4-5.0); ALBUMIN/GLOBULIN RATIO 0.7 (1.1-1.5); ALKALINE PHOSPHATASE 142 IU/L (46-116); ANION GAP 10 (8-16); ASPARTATE AMINO TRANSFERASE 23 U/L (10-37); BILIRUBIN,TOTAL 0.5 MG/DL (0.1-1.0); BLOOD UREA NITROGEN 13 MG/DL (7-18); BUN/CREATININE RATIO 15.9 (6.6-38.0); CALCIUM 9.2 MG/DL (8.5-10.1); CHLORIDE 100 MMOL/L (99-107); CREATININE 0.82 MG/DL (0.40-0.90); GLUCOSE 110 MG/DL (70-104); MAGNESIUM 2.2 MG/DL (1.5-2.4); PHOSPHORUS 4.2 MG/DL (2.3-4.5); POTASSIUM 4.6 MMOL/L (3.5-5.1); SODIUM 134 MMOL/L (135-145); TOTAL CARBON DIOXIDE 23.6 MMOL/L (24-32); TOTAL PROTEIN 6.5 G/DL (6.4-8.2); eGFR 70 ML/MIN
[2017-11-11 07:07] VITALS: BP 117/69
[2017-11-11] MEDS: lactobacillus rhamnosus 10,000 MMU CELLS/CAPSULE PO SCH ×2 (07:58→19:59)
[2017-11-11] MEDS: docusate sodium 100mg/10ml UD cup PO SCH ×2 (07:58→19:59)
[2017-11-11] MEDS: heparin, porcine 5000 units/ml vial SQ SCH ×2 (07:58→20:00)
[2017-11-11] MEDS: fluconazole-Diflucan 200mg/NS 100 ML IV SCH (09:37)
[2017-11-11 11:52] VITALS: BP 117/68
[2017-11-11 19:00] VITALS: BP 124/64
[2017-11-11] MEDS: insulin glargine (Lantus) pen - multi-dose SQ SCH (21:00)
[2017-11-12] VITALS: BP 122/73
[2017-11-12] MEDS: normal saline 1000ml 1,000 ML IV SCH (01:40)
[2017-11-12] MEDS: piperacillin/tazo 3.375gm/50ml 50 ML IV SCH ×4 (01:40→19:52)
[2017-11-12] MEDS: ipratropium/albuterol 3ml nebule NEB SCH ×4 (02:23→20:59)
[2017-11-12 05:52] LABS: BASOPHILS # (AUTO) 0.1 X10'3 (0-0.2); BASOPHILS % (AUTO) 0.9 % (0-1); EOSINOPHILS # (AUTO) 0.4 X10'3 (0-0.9); EOSINOPHILS % (AUTO) 5.3 % (0-6); HEMOGLOBIN 10.8 g/dl (12.0-16.0); LYMPHOCYTES # (AUTO) 1.2 X10'3 (1.1-4.8); LYMPHOCYTES % (AUTO) 14.7 % (21-51); MEAN CORPUSCULAR HEMOGLOBIN 31.5 PG (27.0-31.0); MEAN CORPUSCULAR HGB CONC 33.9 % (33.0-36.5); MEAN CORPUSCULAR VOLUME 93.1 FL (78-98); MEAN PLATELET VOLUME 7.9 FL (7.4-10.4); MONOCYTES # (AUTO) 0.9 X10'3 (0-0.9); MONOCYTES % (AUTO) 11.4 % (2-12); NEUTROPHILS # (AUTO) 5.6 X10'3 (1.8-7.7); NEUTROPHILS % (AUTO) 67.7 % (42-75); PLATELET COUNT 687 X10'3 (140-440); RED BLOOD COUNT 3.44 X10'6 (4.20-5.60); RED CELL DISTRIBUTION WIDTH 14.2 % (11.5-14.5); WHITE BLOOD COUNT 8.3 X10'3 (4.5-11.0)
[2017-11-12 06:57] LABS: ALANINE AMINOTRANSFERASE 35 U/L (12-78); ALBUMIN 2.7 G/DL (3.4-5.0); ALBUMIN/GLOBULIN RATIO 0.7 (1.1-1.5); ALKALINE PHOSPHATASE 125 IU/L (46-116); ANION GAP 11 (8-16); ASPARTATE AMINO TRANSFERASE 16 U/L (10-37); BILIRUBIN,TOTAL 0.6 MG/DL (0.1-1.0); BLOOD UREA NITROGEN 15 MG/DL (7-18); BUN/CREATININE RATIO 17.6 (6.6-38.0); CALCIUM 8.9 MG/DL (8.5-10.1); CHLORIDE 101 MMOL/L (99-107); CREATININE 0.85 MG/DL (0.40-0.90); GLUCOSE 109 MG/DL (70-104); MAGNESIUM 2.1 MG/DL (1.5-2.4); PHOSPHORUS 4.2 MG/DL (2.3-4.5); POTASSIUM 4.2 MMOL/L (3.5-5.1); SODIUM 135 MMOL/L (135-145); TOTAL CARBON DIOXIDE 23.1 MMOL/L (24-32); TOTAL PROTEIN 6.6 G/DL (6.4-8.2); eGFR 67 ML/MIN
[2017-11-12] MEDS: methylnaltrexone br 12mg/0.6ml inj***SubQ only SQ SCH (07:24)
[2017-11-12] MEDS: heparin, porcine 5000 units/ml vial SQ SCH ×2 (07:27→19:52)
[2017-11-12] MEDS: lactobacillus rhamnosus 10,000 MMU CELLS/CAPSULE PO SCH ×2 (07:27→19:52)
[2017-11-12] MEDS: docusate sodium 100mg/10ml UD cup PO SCH ×2 (07:28→19:52)
[2017-11-12 07:45] LABS: TOTAL CELLS COUNTED 100
[2017-11-12 07:46] LABS: PLATELET ESTIMATE INCREASED; POLYCHROMASIA 1+
[2017-11-12] MEDS: fluconazole-Diflucan 200mg/NS 100 ML IV SCH (09:36)
[2017-11-12 12:00] VITALS: BP 122/65
[2017-11-12 19:00] VITALS: BP 141/72
[2017-11-12] MEDS: insulin glargine (Lantus) pen - multi-dose SQ SCH (21:00)
[2017-11-13] VITALS: BP 143/81
[2017-11-13] MEDS: piperacillin/tazo 3.375gm/50ml 50 ML IV SCH ×4 (01:40→21:29)
[2017-11-13] MEDS: ipratropium/albuterol 3ml nebule NEB SCH ×4 (03:04→20:34)
[2017-11-13 05:21] LABS: BASOPHILS # (AUTO) 0.1 X10'3 (0-0.2); BASOPHILS % (AUTO) 1.6 % (0-1); EOSINOPHILS # (AUTO) 0.3 X10'3 (0-0.9); EOSINOPHILS % (AUTO) 3.6 % (0-6); HEMATOCRIT 32.6 % (35.0-45.0); HEMOGLOBIN 11.3 g/dl (12.0-16.0); LYMPHOCYTES # (AUTO) 1.1 X10'3 (1.1-4.8); LYMPHOCYTES % (AUTO) 15.2 % (21-51); MEAN CORPUSCULAR HGB CONC 34.6 % (33.0-36.5); MEAN CORPUSCULAR VOLUME 92.3 FL (78-98); MONOCYTES # (AUTO) 0.8 X10'3 (0-0.9); MONOCYTES % (AUTO) 11.2 % (2-12); NEUTROPHILS # (AUTO) 4.8 X10'3 (1.8-7.7); NEUTROPHILS % (AUTO) 68.4 % (42-75); PLATELET COUNT 721 X10'3 (140-440); RED BLOOD COUNT 3.53 X10'6 (4.20-5.60); RED CELL DISTRIBUTION WIDTH 14.4 % (11.5-14.5)
[2017-11-13 05:29] LABS: ALANINE AMINOTRANSFERASE 30 U/L (12-78); ALBUMIN 2.8 G/DL (3.4-5.0); ALBUMIN/GLOBULIN RATIO 0.7 (1.1-1.5); ALKALINE PHOSPHATASE 116 IU/L (46-116); ANION GAP 10 (8-16); ASPARTATE AMINO TRANSFERASE 16 U/L (10-37); BILIRUBIN,TOTAL 0.5 MG/DL (0.1-1.0); BLOOD UREA NITROGEN 10 MG/DL (7-18); BUN/CREATININE RATIO 12.8 (6.6-38.0); CALCIUM 8.9 MG/DL (8.5-10.1); CHLORIDE 98 MMOL/L (99-107); CREATININE 0.78 MG/DL (0.40-0.90); GLUCOSE 125 MG/DL (70-104); MAGNESIUM 2.1 MG/DL (1.5-2.4); PHOSPHORUS 3.6 MG/DL (2.3-4.5); POTASSIUM 3.9 MMOL/L (3.5-5.1); SODIUM 132 MMOL/L (135-145); TOTAL PROTEIN 6.7 G/DL (6.4-8.2); eGFR 74 ML/MIN
[2017-11-13 07:01] VITALS: BP 133/78
[2017-11-13] MEDS: docusate sodium 100mg/10ml UD cup PO SCH ×2 (08:00→21:34)
[2017-11-13] MEDS: lactobacillus rhamnosus 10,000 MMU CELLS/CAPSULE PO SCH ×2 (08:05→21:35)
[2017-11-13] MEDS: heparin, porcine 5000 units/ml vial SQ SCH ×2 (08:05→21:32)
[2017-11-13] MEDS: fluconazole-Diflucan 200mg/NS 100 ML IV SCH (09:14)
[2017-11-13 11:20] VITALS: BP 165/83
[2017-11-13 19:00] VITALS: BP 133/79
[2017-11-14] VITALS: BP 126/70
[2017-11-14] MEDS: ipratropium/albuterol 3ml nebule NEB SCH (02:32)
[2017-11-14] MEDS: piperacillin/tazo 3.375gm/50ml 50 ML IV SCH ×3 (03:13→14:00)
[2017-11-14 05:32] LABS: BASOPHILS # (AUTO) 0.1 X10'3 (0-0.2); BASOPHILS % (AUTO) 1.3 % (0-1); EOSINOPHILS # (AUTO) 0.4 X10'3 (0-0.9); EOSINOPHILS % (AUTO) 6.3 % (0-6); HEMATOCRIT 33.2 % (35.0-45.0); HEMOGLOBIN 11.4 g/dl (12.0-16.0); LYMPHOCYTES # (AUTO) 1.1 X10'3 (1.1-4.8); LYMPHOCYTES % (AUTO) 19.6 % (21-51); MEAN CORPUSCULAR HEMOGLOBIN 31.9 PG (27.0-31.0); MEAN CORPUSCULAR HGB CONC 34.3 % (33.0-36.5); MEAN CORPUSCULAR VOLUME 93.2 FL (78-98); MEAN PLATELET VOLUME 7.9 FL (7.4-10.4); MONOCYTES # (AUTO) 0.8 X10'3 (0-0.9); MONOCYTES % (AUTO) 14.1 % (2-12); NEUTROPHILS # (AUTO) 3.4 X10'3 (1.8-7.7); NEUTROPHILS % (AUTO) 58.7 % (42-75); PLATELET COUNT 735 X10'3 (140-440); RED BLOOD COUNT 3.56 X10'6 (4.20-5.60); RED CELL DISTRIBUTION WIDTH 14.8 % (11.5-14.5); WHITE BLOOD COUNT 5.8 X10'3 (4.5-11.0)
[2017-11-14 07:00] VITALS: BP 119/71
[2017-11-14 07:02] LABS: ALANINE AMINOTRANSFERASE 26 U/L (12-78); ALBUMIN 2.8 G/DL (3.4-5.0); ALBUMIN/GLOBULIN RATIO 0.8 (1.1-1.5); ALKALINE PHOSPHATASE 101 IU/L (46-116); ANION GAP 10 (8-16); ASPARTATE AMINO TRANSFERASE 14 U/L (10-37); BILIRUBIN,TOTAL 0.6 MG/DL (0.1-1.0); BLOOD UREA NITROGEN 9 MG/DL (7-18); CALCIUM 8.9 MG/DL (8.5-10.1); CHLORIDE 103 MMOL/L (99-107); CREATININE 0.82 MG/DL (0.40-0.90); GLUCOSE 110 MG/DL (70-104); MAGNESIUM 2.2 MG/DL (1.5-2.4); PHOSPHORUS 3.5 MG/DL (2.3-4.5); POTASSIUM 4.2 MMOL/L (3.5-5.1); PREALBUMIN 25.1 MG/DL (19-36); SODIUM 137 MMOL/L (135-145); TOTAL CARBON DIOXIDE 23.8 MMOL/L (24-32); TOTAL PROTEIN 6.5 G/DL (6.4-8.2); eGFR 70 ML/MIN
[2017-11-14] MEDS: heparin, porcine 5000 units/ml vial SQ SCH (08:00)
[2017-11-14] MEDS: methylnaltrexone br 12mg/0.6ml inj***SubQ only SQ SCH (08:00)
[2017-11-14] MEDS: lactobacillus rhamnosus 10,000 MMU CELLS/CAPSULE PO SCH (08:15)
[2017-11-14] MEDS: docusate sodium 100mg/10ml UD cup PO SCH (08:15)
[2017-11-14 19:15] VITALS: BP 142/76
== END 2017-11-14 19:20 | disposition home health service (06) | DRG 853 ==
LOC: ER 15:12 → ED HOLD 18:30 → EDBEDREQ 20:05 → CICU 2S 23:20 → CMPBEDREQ 23:35 → ICU 2S 11-05 05:10 → MED 3N 11-05 17:04
PROVIDERS: ADMIT Internal Medicine Critical Care Medicine; ATTEND Internal Medicine Critical Care Medicine
PROC: 0DNW0ZZ Release Peritoneum, Open Approach (ICD-10-PCS; 2017-10-31)
PROC: 0WQF0ZZ Repair Abdominal Wall, Open Approach (ICD-10-PCS; 2017-10-31)
PROC: 5A1945Z Respiratory Ventilation, 24-96 Consecutive Hours (ICD-10-PCS; 2017-10-31)
PROC: 02HV33Z Insertion of Infusion Device into Superior Vena Cava, Percutaneous Approach (ICD-10-PCS; 2017-10-31)
PROC: B548ZZA Ultrasonography of Superior Vena Cava, Guidance (ICD-10-PCS; 2017-10-31)
PROC: 0D1N0Z4 Bypass Sigmoid Colon to Cutaneous, Open Approach (ICD-10-PCS; 2017-10-31)
PROC: 0DBN0ZZ Excision of Sigmoid Colon, Open Approach (ICD-10-PCS; principal; 2017-10-31 20:25)
DX: A41.9 Sepsis, unspecified organism (principal); G93.40 Encephalopathy, unspecified; K57.20 Diverticulitis of large intestine with perforation and abscess without bleeding; I47.1 Supraventricular tachycardia; K56.7 Ileus, unspecified; B95.4 Other streptococcus as the cause of diseases classified elsewhere; N73.6 Female pelvic peritoneal adhesions (postinfective); J45.909 Unspecified asthma, uncomplicated; K43.9 Ventral hernia without obstruction or gangrene; F28 Other psychotic disorder not due to a substance or known physiological condition; Z79.51 Long term (current) use of inhaled steroids; Z79.899 Other long term (current) drug therapy; Z91.041 Radiographic dye allergy status
CPT/HCPCS: 36415; 36600; 70450; 71045; 74018; 74176; 80053; 82746; 82803; 82810; 82948; 83605; 83735; 83880; 84100; 84132; 84134; 84478; 84484; 84560; 85018; 85025; 86885; 86900; 86901; 87040; 87070; 87075; 87076; 87077; 87185; 87186; 87502; 87503; 88302; 88307; 93005; 94002; 94003; 94640; 94760; 96365; 96375; 97110; 97116; 97161; 97530; 99291; A4421; A6209; A6222; A6253; A6255; A6257; A6258; A6266; A6449; A7000; A7015; C1758; C9113; J0282; J0694; J1450; J1580; J1644; J1815; J1940; J2001; J2212; J2250; J2270; J2405; J2543; J2704; J3010; J3370; J3480; J3490; J7030; J7060; J7120; P9045

== ENCOUNTER 2018-02-07 09:05 | Inpatient (IN) | payer MEDICARE ==
[2018-02-02 14:41] LABS: BASOPHILS # (AUTO) 0.1 X10'3 (0-0.2); BASOPHILS % (AUTO) 0.9 % (0-1); EOSINOPHILS # (AUTO) 0.3 X10'3 (0-0.9); EOSINOPHILS % (AUTO) 4.6 % (0-6); LYMPHOCYTES # (AUTO) 2.3 X10'3 (1.1-4.8); LYMPHOCYTES % (AUTO) 30.1 % (21-51); MEAN CORPUSCULAR HEMOGLOBIN 31.1 PG (27.0-31.0); MEAN CORPUSCULAR HGB CONC 34.1 % (33.0-36.5); MEAN CORPUSCULAR VOLUME 91.2 FL (78-98); MEAN PLATELET VOLUME 8.5 FL (7.4-10.4); MONOCYTES # (AUTO) 0.5 X10'3 (0-0.9); MONOCYTES % (AUTO) 7.2 % (2-12); NEUTROPHILS # (AUTO) 4.3 X10'3 (1.8-7.7); NEUTROPHILS % (AUTO) 57.2 % (42-75); PRE OP HEMATOCRIT 41.2 % (35.0-45.0); PRE OP HEMOGLOBIN 14.1 g/dL (12.0-16.0); PRE OP PLATELET COUNT 316 X10'3 (140-440); RED BLOOD COUNT 4.51 X10'6 (4.20-5.60); RED CELL DISTRIBUTION WIDTH 13.7 % (11.5-14.5)
[2018-02-02 14:50] LABS: PRE OP PROTIME 10.4 SECONDS (9.0-12.0)
[2018-02-02 14:56] LABS: ALBUMIN 4.2 G/DL (3.4-5.0); ALBUMIN/GLOBULIN RATIO 1.3 (1.1-1.5); ALKALINE PHOSPHATASE 73 IU/L (46-116); BLOOD UREA NITROGEN 11 MG/DL (7-18); BUN/CREATININE RATIO 14.9 (6.6-38.0); CALCIUM 10.1 MG/DL (8.5-10.1); CHLORIDE 103 MMOL/L (99-107); CREATININE 0.74 MG/DL (0.40-0.90); PRE OP ALT 22 U/L (30-65); PRE OP ANION GAP 10 (8-16); PRE OP AST 17 U/L (10-37); PRE OP BILIRUB, TOTAL 0.6 MG/DL (0.0-1.0); PRE OP GLUCOSE 98 MG/DL (70-104); PRE OP SODIUM 140 MMOL/L (135-145); TOTAL CARBON DIOXIDE 26.6 MMOL/L (24-32); TOTAL PROTEIN 7.5 G/DL (6.4-8.2); eGFR 78 ML/MIN
[~2018-02-07] VITALS: Ht 160 cm; Wt 54.5 kg
[2018-02-07] VITALS (18 sets, daily range): BP systolic 117–168; BP diastolic 74–138
[~2018-02-07 09:05] MED LIST: ALBU8.5H8 INH; BUDE10.2 INH; CYAN100097 PO; LACT1CAP65 PO; albuterol 2.5 MG/3 ML nebule NEB ONE; ceFOXitin 2 GM ADDvantage bag 100 ML IV ONE; famotidine 20mg tablet PO ONE; ringers solution, lacted 1,000 ML IV SCH
[2018-02-07] MEDS ORDERED: ondansetron/PF 4mg/2ml inj IV ONE (10:50)
[2018-02-07] MEDS ORDERED: gentamicin 40 MG/1 ML inj ONE (12:13)
[2018-02-07] MEDS ORDERED: clindamycin phosphate 150mg/ml inj. ONE (12:13)
[2018-02-07] MEDS ORDERED: sevoflurane 250ml liquid IH ONE (13:27)
[2018-02-07] MEDS ORDERED: dexamethasone sod phosphate 10mg/ml inj ONE (13:27)
[2018-02-07] MEDS ORDERED: neostigmine methylsulfate 1 MG/ML 10ml vial ONE (13:27)
[2018-02-07] MEDS ORDERED: fentaNYL/PF 50MCG/1 ML 2ML syringe ONE (13:32)
[2018-02-07] MEDS ORDERED: midazolam 2 mg/2 ml injection ONE (13:33)
[2018-02-07] MEDS ORDERED: LIDOcaine 2% (20mg/ml) 5ml vial ONE (13:35)
[2018-02-07] MEDS ORDERED: propofol inj 20 ML IV ONE (13:35)
[2018-02-07] MEDS ORDERED: rocuronium 10mg/ml inj IV ONE ×2 (13:35→15:07)
[2018-02-07] MEDS ORDERED: ringers solution, lacted 1,000 ML IV SCH (14:13)
[2018-02-07] MEDS ORDERED: labetalol 20mg/4ml (5mg/ml) syringe IV PRN (14:15)
[2018-02-07] MEDS ORDERED: hydrALAZINE 20mg/ml inj. IV PRN (14:15)
[2018-02-07] MEDS ORDERED: morphine 4 MG/ML inj SYRINge IV PRN ×2 (14:15)
[2018-02-07] MEDS ORDERED: ondansetron/PF 4mg/2ml inj IV PRN (14:15)
[2018-02-07] MEDS ORDERED: fentaNYL/PF 50MCG/1 ML 2ML syringe IV PRN ×2 (14:15)
[2018-02-07] MEDS ORDERED: labetalol 5mg/ml 20ml inj. IV ONE (14:32)
[2018-02-07] MEDS ORDERED: morphine 10mg/ml inj. ONE (15:07)
[2018-02-07] MEDS ORDERED: glycopyrrolate 0.2mg/ml inj ONE (15:41)
[2018-02-07] MEDS ORDERED: ceFOXitin 1 GM ADDVANTAGE BAG 1,000 MG in normal saline 100ml IV soln 100 ML IV SCH (16:00)
[2018-02-07] MEDS: HYDROmorphone 1 mg/ml syringe IV PRN (20:09)
[2018-02-07] MEDS: ADDVANTAGE IV SCH (20:51)
[2018-02-07] MEDS: potassium CL 20mEq in D5-1/2NS 1,000 ML IV SCH ×2 (20:51→23:22)
[2018-02-07] MEDS: CEFOXITIN IV SCH (20:51)
[2018-02-07] MEDS: DEXTROSE 5% IV SCH (20:51)
[2018-02-07] MEDS: WATER IV SCH (20:51)
[2018-02-08] VITALS: BP 129/81
[2018-02-08] MEDS: HYDROmorphone 1 mg/ml syringe IV PRN ×4 (00:33→21:37)
[2018-02-08] MEDS: potassium CL 20mEq in D5-1/2NS 1,000 ML IV SCH ×3 (04:17→21:30)
[2018-02-08] MEDS: DEXTROSE 5% IV SCH ×2 (04:18→19:45)
[2018-02-08] MEDS: WATER IV SCH ×2 (04:18→19:45)
[2018-02-08] MEDS: ADDVANTAGE IV SCH ×2 (04:18→19:45)
[2018-02-08] MEDS: CEFOXITIN IV SCH ×2 (04:18→19:45)
[2018-02-08 05:28] LABS: BASOPHILS % (AUTO) 0.1 % (0-1); EOSINOPHILS % (AUTO) 0 % (0-6); HEMATOCRIT 39.8 % (35.0-45.0); HEMOGLOBIN 13.5 g/dl (12.0-16.0); LYMPHOCYTES # (AUTO) 0.9 X10'3 (1.1-4.8); LYMPHOCYTES % (AUTO) 4.3 % (21-51); MEAN CORPUSCULAR HEMOGLOBIN 31.5 PG (27.0-31.0); MEAN CORPUSCULAR VOLUME 92.5 FL (78-98); MEAN PLATELET VOLUME 9.2 FL (7.4-10.4); MONOCYTES # (AUTO) 0.4 X10'3 (0-0.9); NEUTROPHILS # (AUTO) 20.5 X10'3 (1.8-7.7); NEUTROPHILS % (AUTO) 93.6 % (42-75); PLATELET COUNT 312 X10'3 (140-440); RED CELL DISTRIBUTION WIDTH 13.9 % (11.5-14.5); WHITE BLOOD COUNT 21.9 X10'3 (4.5-11.0)
[2018-02-08 06:03] LABS: ALBUMIN 3.2 G/DL (3.4-5.0); ANION GAP 12 (8-16); BLOOD UREA NITROGEN 11 MG/DL (7-18); BUN/CREATININE RATIO 10.7 (6.6-38.0); CALCIUM 8.3 MG/DL (8.5-10.1); CHLORIDE 103 MMOL/L (99-107); CREATININE 1.03 MG/DL (0.40-0.90); GLUCOSE 195 MG/DL (70-104); POTASSIUM 4.2 MMOL/L (3.5-5.1); SODIUM 138 MMOL/L (135-145); TOTAL CARBON DIOXIDE 23.1 MMOL/L (24-32); eGFR 53 ML/MIN
[2018-02-08 06:53] LABS: TOTAL CELLS COUNTED 100
[2018-02-08 06:54] LABS: PLATELET ESTIMATE NORMAL
[2018-02-08 07:00] VITALS: BP 119/59
[2018-02-08] MEDS ORDERED: MESSAGE TO NURSING PO ONE (08:00)
[2018-02-08 14:20] VITALS: BP 129/70
[2018-02-08] MEDS: albuterol 2.5 MG/3 ML nebule NEB SCH ×2 (15:09→20:09)
[2018-02-08] MEDS ORDERED: albuterol 2.5 MG/3 ML nebule NEB PRN (15:25)
[2018-02-08 18:00] VITALS: BP 118/54
[2018-02-08] MEDS ORDERED: non-formulary drug (Budesonide/Formoterol Fumarate (Symbicort 160-4.5 Mcg Inhaler) 1 PUFFS INH SCH (20:00)
[2018-02-08] MEDS: budesonide 0.5mg/2ml UD nebule IH SCH (20:14)
[2018-02-09] VITALS: BP 106/52
[2018-02-09] MEDS: albuterol 2.5 MG/3 ML nebule NEB SCH ×7 (00:30→23:41)
[2018-02-09] MEDS: ADDVANTAGE IV SCH ×2 (04:07→19:35)
[2018-02-09] MEDS: CEFOXITIN IV SCH ×2 (04:07→19:35)
[2018-02-09] MEDS: DEXTROSE 5% IV SCH ×2 (04:07→19:35)
[2018-02-09] MEDS: WATER IV SCH ×2 (04:07→19:35)
[2018-02-09] MEDS: HYDROcodone/acetaminophen 10/325mg tab PO PRN ×3 (04:08→23:11)
[2018-02-09] MEDS: potassium CL 20mEq in D5-1/2NS 1,000 ML IV SCH ×3 (04:43→23:27)
[2018-02-09 05:01] LABS: BASOPHILS # (AUTO) 0.1 X10'3 (0-0.2); BASOPHILS % (AUTO) 0.6 % (0-1); EOSINOPHILS % (AUTO) 0 % (0-6); HEMATOCRIT 33.8 % (35.0-45.0); HEMOGLOBIN 11.4 g/dl (12.0-16.0); LYMPHOCYTES % (AUTO) 5.3 % (21-51); MEAN CORPUSCULAR HEMOGLOBIN 31.1 PG (27.0-31.0); MEAN CORPUSCULAR HGB CONC 33.6 % (33.0-36.5); MEAN CORPUSCULAR VOLUME 92.4 FL (78-98); MEAN PLATELET VOLUME 9.5 FL (7.4-10.4); MONOCYTES # (AUTO) 0.7 X10'3 (0-0.9); MONOCYTES % (AUTO) 3.9 % (2-12); NEUTROPHILS # (AUTO) 16.4 X10'3 (1.8-7.7); NEUTROPHILS % (AUTO) 90.2 % (42-75); PLATELET COUNT 250 X10'3 (140-440); RED BLOOD COUNT 3.65 X10'6 (4.20-5.60); RED CELL DISTRIBUTION WIDTH 13.8 % (11.5-14.5); WHITE BLOOD COUNT 18.1 X10'3 (4.5-11.0)
[2018-02-09 05:31] LABS: ALBUMIN 2.8 G/DL (3.4-5.0); BLOOD UREA NITROGEN 5 MG/DL (7-18); BUN/CREATININE RATIO 6.8 (6.6-38.0); CALCIUM 8.7 MG/DL (8.5-10.1); CHLORIDE 104 MMOL/L (99-107); CREATININE 0.74 MG/DL (0.40-0.90); GLUCOSE 179 MG/DL (70-104); TOTAL CARBON DIOXIDE 25.8 MMOL/L (24-32); eGFR 78 ML/MIN
[2018-02-09 05:49] LABS: ANION GAP 6 (8-16); SODIUM 136 MMOL/L (135-145)
[2018-02-09 07:13] VITALS: BP 131/66
[2018-02-09] MEDS: budesonide 0.5mg/2ml UD nebule IH SCH ×2 (07:13→19:40)
[2018-02-09] MEDS: enoxaparin 40mg/0.4ml syringe SUBCUT SCH (09:13)
[2018-02-09 12:05] VITALS: BP 109/59
[2018-02-09] MEDS: HYDROmorphone 1 mg/ml syringe IV PRN (16:59)
[2018-02-09 18:00] VITALS: BP 123/81
[2018-02-09] MEDS: lactobacillus rhamnosus 10,000 MMU CELLS/CAPSULE PO SCH (19:35)
[2018-02-09] MEDS: BUDESONIDE 0.25 MG/2 ML AMPUL.NEB IH SCH (19:46)
[2018-02-10] VITALS: BP 131/72
[2018-02-10] MEDS: albuterol 2.5 MG/3 ML nebule NEB SCH ×4 (03:28→19:55)
[2018-02-10] MEDS: DEXTROSE 5% IV SCH ×2 (03:57→20:17)
[2018-02-10] MEDS: WATER IV SCH ×2 (03:57→20:17)
[2018-02-10] MEDS: CEFOXITIN IV SCH ×2 (03:57→20:17)
[2018-02-10] MEDS: ADDVANTAGE IV SCH ×2 (03:57→20:17)
[2018-02-10 05:15] LABS: ALBUMIN 2.8 G/DL (3.4-5.0); ANION GAP 6 (8-16); BLOOD UREA NITROGEN 3 MG/DL (7-18); BUN/CREATININE RATIO 2.9 (6.6-38.0); CALCIUM 8.5 MG/DL (8.5-10.1); CHLORIDE 103 MMOL/L (99-107); CREATININE 1.02 MG/DL (0.40-0.90); GLUCOSE 121 MG/DL (70-104); POTASSIUM 3.9 MMOL/L (3.5-5.1); SODIUM 137 MMOL/L (135-145); TOTAL CARBON DIOXIDE 28.4 MMOL/L (24-32); eGFR 54 ML/MIN
[2018-02-10 05:20] LABS: BASOPHILS # (AUTO) 0.2 X10'3 (0-0.2); EOSINOPHILS # (AUTO) 0.1 X10'3 (0-0.9); EOSINOPHILS % (AUTO) 0.6 % (0-6); HEMATOCRIT 35.4 % (35.0-45.0); HEMOGLOBIN 11.7 g/dl (12.0-16.0); LYMPHOCYTES # (AUTO) 2.2 X10'3 (1.1-4.8); LYMPHOCYTES % (AUTO) 19.6 % (21-51); MEAN CORPUSCULAR HEMOGLOBIN 30.8 PG (27.0-31.0); MEAN CORPUSCULAR HGB CONC 33.1 % (33.0-36.5); MONOCYTES # (AUTO) 0.6 X10'3 (0-0.9); MONOCYTES % (AUTO) 5.2 % (2-12); NEUTROPHILS % (AUTO) 72.6 % (42-75); PLATELET COUNT 268 X10'3 (140-440); RED BLOOD COUNT 3.81 X10'6 (4.20-5.60); WHITE BLOOD COUNT 11.1 X10'3 (4.5-11.0)
[2018-02-10 08:00] VITALS: BP 149/83
[2018-02-10] MEDS: lactobacillus rhamnosus 10,000 MMU CELLS/CAPSULE PO SCH ×2 (08:23→20:17)
[2018-02-10] MEDS: magnesium hydroxide 30ml (MOM) UD suspension PO SCH ×2 (08:23→20:00)
[2018-02-10] MEDS: enoxaparin 40mg/0.4ml syringe SUBCUT SCH (08:23)
[2018-02-10] MEDS: potassium CL 20mEq in D5-1/2NS 1,000 ML IV SCH ×3 (08:24→23:55)
[2018-02-10] MEDS: BUDESONIDE 0.25 MG/2 ML AMPUL.NEB IH SCH ×2 (08:41→19:55)
[2018-02-10] MEDS: HYDROcodone/acetaminophen 10/325mg tab PO PRN (08:58)
[2018-02-10 12:00] VITALS: BP 139/90
[2018-02-10] MEDS: HYDROmorphone 1 mg/ml syringe IV PRN (12:57)
[2018-02-10 18:00] VITALS: BP 140/84
[2018-02-11] VITALS: BP 132/80
[2018-02-11] MEDS: ondansetron/PF 4mg/2ml inj IV PRN ×3 (01:46→17:49)
[2018-02-11] MEDS: potassium CL 20mEq in D5-1/2NS 1,000 ML IV SCH ×3 (01:55→19:03)
[2018-02-11] MEDS: albuterol 2.5 MG/3 ML nebule NEB SCH ×4 (02:53→21:44)
[2018-02-11] MEDS: WATER IV SCH ×2 (03:59→19:03)
[2018-02-11] MEDS: CEFOXITIN IV SCH ×2 (03:59→19:03)
[2018-02-11] MEDS: DEXTROSE 5% IV SCH ×2 (03:59→19:03)
[2018-02-11] MEDS: ADDVANTAGE IV SCH ×2 (03:59→19:03)
[2018-02-11 06:06] LABS: BASOPHILS % (AUTO) 0.2 % (0-1); EOSINOPHILS # (AUTO) 0.2 X10'3 (0-0.9); EOSINOPHILS % (AUTO) 1.7 % (0-6); HEMATOCRIT 41.6 % (35.0-45.0); HEMOGLOBIN 13.9 g/dl (12.0-16.0); LYMPHOCYTES # (AUTO) 1.3 X10'3 (1.1-4.8); LYMPHOCYTES % (AUTO) 10.7 % (21-51); MEAN CORPUSCULAR HEMOGLOBIN 30.7 PG (27.0-31.0); MEAN CORPUSCULAR HGB CONC 33.4 % (33.0-36.5); MEAN CORPUSCULAR VOLUME 91.9 FL (78-98); MEAN PLATELET VOLUME 8.6 FL (7.4-10.4); MONOCYTES # (AUTO) 0.6 X10'3 (0-0.9); MONOCYTES % (AUTO) 4.8 % (2-12); NEUTROPHILS % (AUTO) 82.6 % (42-75); PLATELET COUNT 328 X10'3 (140-440); RED BLOOD COUNT 4.52 X10'6 (4.20-5.60); RED CELL DISTRIBUTION WIDTH 13.7 % (11.5-14.5); WHITE BLOOD COUNT 12.1 X10'3 (4.5-11.0)
[2018-02-11 06:26] LABS: ALBUMIN 3.4 G/DL (3.4-5.0); ANION GAP 8 (8-16); BLOOD UREA NITROGEN 1 MG/DL (7-18); BUN/CREATININE RATIO 1.1 (6.6-38.0); CALCIUM 9.7 MG/DL (8.5-10.1); CHLORIDE 97 MMOL/L (99-107); GLUCOSE 148 MG/DL (70-104); POTASSIUM 4.5 MMOL/L (3.5-5.1); SODIUM 132 MMOL/L (135-145); eGFR 62 ML/MIN
[2018-02-11 08:00] VITALS: BP 128/83
[2018-02-11] MEDS: lactobacillus rhamnosus 10,000 MMU CELLS/CAPSULE PO SCH ×2 (08:00→20:00)
[2018-02-11] MEDS ORDERED: methylnaltrexone br 12mg/0.6ml inj***SubQ only SQ SCH (08:00)
[2018-02-11] MEDS: magnesium hydroxide 30ml (MOM) UD suspension PO SCH ×2 (08:00→20:00)
[2018-02-11] MEDS: enoxaparin 40mg/0.4ml syringe SUBCUT SCH (08:32)
[2018-02-11] MEDS: BUDESONIDE 0.25 MG/2 ML AMPUL.NEB IH SCH ×2 (09:44→21:43)
[2018-02-11 12:00] VITALS: BP 142/89
[2018-02-11 19:00] VITALS: BP 143/82
[2018-02-12] VITALS: BP 138/83
[2018-02-12] MEDS: ondansetron/PF 4mg/2ml inj IV PRN ×2 (00:10→09:22)
[2018-02-12] MEDS: potassium CL 20mEq in D5-1/2NS 1,000 ML IV SCH ×3 (02:59→23:55)
[2018-02-12] MEDS: albuterol 2.5 MG/3 ML nebule NEB SCH ×3 (03:00→20:29)
[2018-02-12] MEDS: DEXTROSE 5% IV SCH ×2 (03:25→19:07)
[2018-02-12] MEDS: WATER IV SCH ×2 (03:25→19:07)
[2018-02-12] MEDS: CEFOXITIN IV SCH ×2 (03:25→19:07)
[2018-02-12] MEDS: ADDVANTAGE IV SCH ×2 (03:25→19:07)
[2018-02-12 06:38] LABS: BASOPHILS % (AUTO) 0.4 % (0-1); EOSINOPHILS % (AUTO) 0.3 % (0-6); HEMATOCRIT 40.9 % (35.0-45.0); HEMOGLOBIN 13.9 g/dl (12.0-16.0); LYMPHOCYTES # (AUTO) 1.5 X10'3 (1.1-4.8); LYMPHOCYTES % (AUTO) 12.7 % (21-51); MEAN CORPUSCULAR HEMOGLOBIN 30.8 PG (27.0-31.0); MEAN CORPUSCULAR VOLUME 90.6 FL (78-98); MEAN PLATELET VOLUME 8.6 FL (7.4-10.4); MONOCYTES # (AUTO) 0.8 X10'3 (0-0.9); MONOCYTES % (AUTO) 6.9 % (2-12); NEUTROPHILS # (AUTO) 9.5 X10'3 (1.8-7.7); NEUTROPHILS % (AUTO) 79.7 % (42-75); PLATELET COUNT 360 X10'3 (140-440); RED BLOOD COUNT 4.51 X10'6 (4.20-5.60); RED CELL DISTRIBUTION WIDTH 13.6 % (11.5-14.5); WHITE BLOOD COUNT 11.9 X10'3 (4.5-11.0)
[2018-02-12 06:49] LABS: ALBUMIN 2.9 G/DL (3.4-5.0); ANION GAP 9 (8-16); BLOOD UREA NITROGEN 5 MG/DL (7-18); BUN/CREATININE RATIO 6.4 (6.6-38.0); CALCIUM 8.8 MG/DL (8.5-10.1); CHLORIDE 94 MMOL/L (99-107); CREATININE 0.78 MG/DL (0.40-0.90); GLUCOSE 142 MG/DL (70-104); POTASSIUM 4.4 MMOL/L (3.5-5.1); SODIUM 127 MMOL/L (135-145); TOTAL CARBON DIOXIDE 23.7 MMOL/L (24-32); eGFR 73 ML/MIN
[2018-02-12 07:52] VITALS: BP 159/93
[2018-02-12] MEDS: enoxaparin 40mg/0.4ml syringe SUBCUT SCH (08:00)
[2018-02-12] MEDS: BUDESONIDE 0.25 MG/2 ML AMPUL.NEB IH SCH ×2 (08:30→20:29)
[2018-02-12] MEDS: lactobacillus rhamnosus 10,000 MMU CELLS/CAPSULE PO SCH ×2 (09:21→19:07)
[2018-02-12] MEDS: magnesium hydroxide 30ml (MOM) UD suspension PO SCH ×2 (09:40→19:07)
[2018-02-12 19:00] VITALS: BP 140/88
[2018-02-13] VITALS: BP 123/74
[2018-02-13] MEDS: albuterol 2.5 MG/3 ML nebule NEB SCH ×3 (03:08→15:00)
[2018-02-13] MEDS: WATER IV SCH (04:00)
[2018-02-13] MEDS: DEXTROSE 5% IV SCH (04:00)
[2018-02-13] MEDS: ADDVANTAGE IV SCH (04:00)
[2018-02-13] MEDS: CEFOXITIN IV SCH (04:00)
[2018-02-13 07:00] VITALS: BP 119/68
[2018-02-13] MEDS: potassium CL 20mEq in D5-1/2NS 1,000 ML IV SCH ×2 (07:55→15:55)
[2018-02-13] MEDS: enoxaparin 40mg/0.4ml syringe SUBCUT SCH (08:00)
[2018-02-13] MEDS: lactobacillus rhamnosus 10,000 MMU CELLS/CAPSULE PO SCH (08:02)
[2018-02-13] MEDS: magnesium hydroxide 30ml (MOM) UD suspension PO SCH (08:02)
[2018-02-13] MEDS: BUDESONIDE 0.25 MG/2 ML AMPUL.NEB IH SCH (09:38)
[2018-02-13 12:00] VITALS: BP 135/82
[2018-02-13] MEDS ORDERED: HYDR-565 PO (13:59)
== END 2018-02-13 13:00 | disposition home health service (06) | DRG 336 ==
LOC: PAS IN 09:05 → EDSTATUS 13:00 → SUR 3N 17:00
PROVIDERS: ADMIT Surgery; ATTEND Surgery
PROC: 0DNW0ZZ Release Peritoneum, Open Approach (ICD-10-PCS; 2018-02-07)
PROC: 0DSN0ZZ Reposition Sigmoid Colon, Open Approach (ICD-10-PCS; principal; 2018-02-07 13:27)
DX: Z43.3 Encounter for attention to colostomy (principal); K56.7 Ileus, unspecified; K66.0 Peritoneal adhesions (postprocedural) (postinfection); I10 Essential (primary) hypertension; Z91.041 Radiographic dye allergy status; Z79.899 Other long term (current) drug therapy
CPT/HCPCS: 36415; 80048; 80053; 85025; 85610; 85730; 86885; 86900; 86901; 87070; 88305; 88307; 94640; 94760; A6251; A6253; A6266; A6449; A7000; C1758; J0694; J1100; J1170; J1580; J1650; J2001; J2250; J2270; J2405; J2704; J2710; J3010; J3490; J7030; J7060; J7120; J7626